=== PATIENT | male | born 1960 | race Caucasian/White ===

== ENCOUNTER 2020-02-04 15:39 | Emergency (ER) | payer MEDICAID ==
[2020-02-04] MEDS ORDERED: BUFFERED LIDOCAINE 10 ML SYRINGE SUBQ STA (16:49)
[2020-02-04] MEDS ORDERED: TETANUS/DIPHTHERIA/PERTUSSIS 0.5 ML SYRINGE IM ONE (16:49)
--- NOTE | 2020-02-04 17:14 | ED Physician Documentation ---
History of Present Illness - Stated complaint Stated Complaint: RT SHOULDER BITE - Chief complaint Chief Complaint: General - History obtained from History obtained from: Patient - History of Present Illness Timing: Prior to arrival, How many weeks ago (2) - Additonal information Additional information: 59-year-old male presents to the emergency department for evaluation of a right upper posterior arm abscess that he reports began as a spider bite nearly 2 weeks ago. His placed warm compress and antibiotic ointment to no avail. Is progressively more painful and now quite fluctuant. He denies fevers any history of diabetes. No nausea vomiting. Review of Systems Constitutional: reports: Reviewed and negative Ears: reports: Reviewed and negative Nose: reports: Reviewed and negative Throat: reports: Reviewed and negative Cardiac: reports: Reviewed and negative Respiratory: reports: Reviewed and negative GI: reports: Reviewed and negative Skin: reports: Lesions (right upper posterior arm) Musculoskeletal: reports: Reviewed and negative Neurologic: reports: Reviewed and negative PD PAST MEDICAL HISTORY - Past Medical History Past Medical History: No - Past Surgical History Past Surgical History: No - Present Medications Home Medications: Ambulatory Orders Medication Instructions Recorded Confirmed Sulfamethox/Trimeth 800/160 1 each PO BID #14 tablet 02/04/20 [Bactrim Ds 800/160] - Allergies Allergies/Adverse Reactions: Allergies Allergy/AdvReac Type Severity Reaction Status Date / Time No Known Drug Allergies Allergy Verified 02/04/20 15:57 - Social History Does the pt smoke?: Yes Smoking Status: Current every day smoker Does the pt drink ETOH?: No Does the pt have substance abuse?: No - Immunizations Immunizations are current?: Yes PD ED PE NORMAL - General General: Alert and oriented X 3, No acute distress - HEENT HEENT: PERRL, EOMI, Ears normal - Neck Neck: Supple, no meningeal sign, No adenopathy - Cardiac Cardiac: RRR, No murmur - Respiratory Respiratory: No respiratory distress - Abdomen Abdomen: Normal bowel sounds, Soft - Derm Derm: Normal color, Warm and dry, No rash, Other (4 cm area of erythema and induration with centralized fluctuance right upper posterior arm.) - Extremities Extremities: No deformity Results - Vitals Vitals: Vital Signs - 24 hr 02/04/20 02/04/20 15:53 16:43 Temperature 36.4 C L 36.3 C L Heart Rate 60 66 Respiratory 16 18 Rate Blood Pressure 154/89 H 165/89 H O2 Saturation 95 94 Oxygen O2 Source Room air Procedures - Abscess I&D (location) right arm Preparation: Betadine Incision: Incised with scalpel, Purulent drainage, Loculations broken, Irrigated, Packed Other: Pt tolerated well, Dressing applied, Antibiotic prescribed PD MEDICAL DECISION MAKING - ED course Complexity details: considered differential, d/w patient ED course: 59-year-old male presents to the emergency department with a right upper posterior arm abscess that began nearly 2 weeks ago. His tetanus was updated in the emergency department. I was able to incise and drain the abscess with moderate amount of purulent fluid drained. Packing was placed. Patient advised to have the packing removed in 24 to 48 hours. Given purulent appearance of drainage will prescribe Bactrim for suspected MRSA. Routine wound care and emergent return precautions discussed Departure - Departure Disposition: 01 Home, Self Care Clinical Impression: Abscess Condition: Stable Record reviewed to determine appropriate education?: Yes Instructions: ED Packing Removal Replacement, ED IandD Abscess Ch Prescriptions: Sulfamethox/Trimeth 800/160 [Bactrim Ds 800/160] 1 each PO BID #14 tablet Comments: Dell the packing in your wound can be removed in 24 hours. Please fill the prescription for the oral antibiotics and begin taking tomorrow as directed. It will likely take 2 or more weeks for this wound to completely heal. If at any point you have increased pain, increased redness fevers or worsening milky drainage please return to the emergency department. You may shower normally. Once the packing is removed it is okay to allow water to rinse through the wound. Place a simple bandage over the wound each day.
[2020-02-04] MEDS ORDERED: SULFAMETH/TRIMETH DS 800/160 MG TABLET PO STA (17:35)
[2020-02-04 17:42] VITALS: BP 161/95
== END 2020-02-04 17:44 | disposition home or self-care (01) ==
LOC: ED 15:39
DX: L02.413 Cutaneous abscess of right upper limb (principal); F17.200 Nicotine dependence, unspecified, uncomplicated
CPT/HCPCS: 10061; 90471; 90715; 99283; 99284; A9270

== ENCOUNTER 2022-11-30 13:14 | Emergency (ER) | payer MEDICAID ==
[2022-11-30 14:42] LABS: BASOPHILS % (AUTO) 0.6 %; EOSINOPHILS # (AUTO) 0.1 10^3/uL (0.0-0.7); EOSINOPHILS % (AUTO) 1.8 %; HCT - HEMATOCRIT 52.9 % (42.0-52.0); HGB - HEMOGLOBIN 16.4 g/dL (14.0-18.0); LYMPHOCYTES # (AUTO) 1.9 10^3/uL (1.5-3.5); LYMPHOCYTES % (AUTO) 28.5 %; MEAN CORPUSCULAR HEMOGLOBIN 30.1 pg (27.0-31.0); MEAN CORPUSCULAR VOLUME 97.2 fL (80.0-94.0); MEAN PLATELET VOLUME 9.4 fL (7.4-11.4); MONOCYTES # (AUTO) 0.7 10^3/uL (0.0-1.0); MONOCYTES % (AUTO) 11.1 %; NEUTROPHILS # (AUTO) 3.8 10^3/uL (1.5-6.6); NEUTROPHILS % (AUTO) 57.8 %; PLT - PLATELET COUNT 179 10^3/uL (130-450); RED BLOOD COUNT 5.44 10^6/uL (4.70-6.10); RED CELL DISTRIBUTION WIDTH 16.9 % (12.0-15.0); WHITE BLOOD COUNT 6.6 x10^3/uL (4.8-10.8)
[2022-11-30] MEDS ORDERED: iohexoL-300 100 ML VIAL ONE (14:47)
--- NOTE | 2022-11-30 14:50 | XRAY Report ---
PROCEDURE: Chest 1 View X-Ray INDICATIONS: dyspnea TECHNIQUE: One view of the chest was acquired. COMPARISON: None. FINDINGS: Surgical changes and devices: None. Lungs and pleura: No pleural effusions or pneumothorax. Prominent pulmonary vascularity. Mediastinum: Mediastinal contours appear normal. Heart size is mildly increased. Bones and chest wall: No suspicious bony lesions. Overlying soft tissues appear unremarkable. IMPRESSION: Mild cardiomegaly and prominent vascularity suggesting mild CHF. Reviewed by: Luiz Patel MD on 11/30/2022 2:48 PM PDT Approved by: Luiz Patel MD on 11/30/2022 2:48 PM PDT Station ID: [id number]
[2022-11-30 15:38] LABS: ALBUMIN 3.5 g/dL (3.2-5.5); ALBUMIN/GLOBULIN RATIO 0.8 (1.0-2.2); ALKALINE PHOSPHATASE 52 IU/L (42-121); ALT ALANINE AMINOTRANSFERASE 12 IU/L (10-60); AST ASPARTATE AMINOTRANSFERASE 13 IU/L (10-42); BILIRUBIN,TOTAL 0.8 mg/dL (0.2-1.0); BUN - BLOOD UREA NITROGEN 16 mg/dL (6-20); CALCIUM 8.8 mg/dL (8.5-10.3); CARBON DIOXIDE - CO2 35 mmol/L (21-32); CHLORIDE 95 mmol/L (101-111); CREATININE 1.1 mg/dL (0.6-1.2); ETOH - ETHANOL < 5.0 mg/dL; GFR - MDRD 68 (>89); GLUCOSE 95 mg/dL (70-100); LIPASE 37 U/L (22-51); POTASSIUM 4.4 mmol/L (3.5-5.0); SODIUM 136 mmol/L (135-145); TOTAL PROTEIN 8.1 g/dL (6.7-8.2)
[2022-11-30 15:44] VITALS: BP 160/94
[2022-11-30] MEDS ORDERED: iohexoL-300 100 ML VIAL IVP ONE (16:16)
--- NOTE | 2022-11-30 16:26 | CT Report ---
PROCEDURE: ABDOMEN/PELVIS W INDICATIONS: abd distension over 3 months CONTRAST: 100ml omni 300 TECHNIQUE: After the administration of intravenous contrast, 5 mm thick sections acquired from the diaphragms to the symphysis. 5 mm thick coronal and sagittal reformats were acquired. For radiation dose reducti on, the following was used: automated exposure control, adjustment of mA and/or kV according to mis ent size. COMPARISON: None FINDINGS: Image quality: Excellent. Lung bases and heart: Unremarkable. Liver: No solid mass. Enlarged, measuring a maximum craniocaudal diameter of 22 mm. Gallbladder and biliary tree: Cholelithiasis with mild focal wall thickening. No biliary dilation. Spleen: No splenomegaly. Pancreas: No pancreatic ductal dilation. Adrenals: No adrenal nodule. Kidneys and ureters: No hydronephrosis. No renal cystic lesion which requires follow up. No solid mas s. Bowel and peritoneum: No bowel distension. Trace ascites surrounding the liver. Diverticulosis withou t evidence of diverticulitis. Normal appendix. Lymph nodes: No central or retroperitoneal adenopathy. Vessels: No infrarenal aortic aneurysm. PELVIS Reproductive organs: Unremarkable. Bladder: No abnormal wall thickening, accounting for underdistension. Pelvic lymph nodes: No pelvic adenopathy by size criteria. Bones: No aggressive osseous abnormality. Opposing endplate sclerosis at L4-5. Degenerative disc dise ase of the thoracolumbar spine. Other: No significant ventral or inguinal hernia. IMPRESSION: Hepatomegaly, measuring a maximum chronic sagittal diameter of 22 mm. No distinct underlying mass. Traced volume ascites. This could be due to underlying liver disease. Cholelithiasis with focal wall thickening. Correlate with right upper quadrant pain to exclude acute cholecystitis. Reviewed by: Song Johnson on 11/30/2022 4:25 PM PDT Approved by: Song Johnson on 11/30/2022 4:25 PM PDT Station ID: [id number]
--- NOTE | 2022-11-30 16:57 | ED Physician Documentation ---
PD HPI ABD PAIN - Stated complaint Stated Complaint: DISTENTED ABD - Chief complaint Chief Complaint: Abd Pain - History obtained from History obtained from: Patient - History of Present Illness Timing - onset: How many months ago (several months of increasing abd size and distension, with feeling of tightness. No nausea nor vomiting. No change in appetite. Has noted chronic edema in both legs, worse the past couple o fmonths. Has had dyspnea with cough and wheezing. was shelter smoker, not current.) Timing - details: Gradual onset, Still present Quality: Cramping, Aching, Fullness/distended Location: All over / everywhere Radiation: No: Chest, Lower back Improved by: BM Associated symptoms: No: Fever, Nausea, Vomiting, Diarrhea, Constipation, Dysuria, Loss of appetite Similar symptoms before: Has not had sx before Review of Systems Constitutional: denies: Fever, Chills Nose: denies: Rhinorrhea / runny nose, Congestion Throat: denies: Sore throat Cardiac: reports: Pedal edema. denies: Chest pain / pressure, Palpitations, Calf pain Respiratory: reports: Dyspnea, Cough, Wheezing GI: reports: Abdominal Swelling. denies: Abdominal Pain, Nausea, Vomiting, Constipation, Diarrhea Skin: reports: Lesions (has redness and scaling o fskin on lower legs due to swelling/unswelling.) PD PAST MEDICAL HISTORY - Past Medical History Cardiovascular: Hypertension Respiratory: None (no Dx of lung disease but has wheezing often and prior long history of smoking. He feels likely some COPD. ) Neuro: None Endocrine/Autoimmune: None - Past Surgical History Past Surgical History: No - Present Medications Home Medications: Ambulatory Orders Medication Instructions Recorded Confirmed Sulfamethox/Trimeth 800/160 1 each PO BID #14 tablet 02/04/20 [Bactrim Ds 800/160] Albuterol Sulf [Ventolin Hfa 2 - 3 puffs INH QID #1 each 11/30/22 Inhaler] Furosemide [Lasix] 40 mg PO DAILY #30 tablet 11/30/22 Potassium Chloride 10 meq PO DAILY #30 tab 11/30/22 - Allergies Allergies/Adverse Reactions: Allergies Allergy/AdvReac Type Severity Reaction Status Date / Time No Known Drug Allergies Allergy Verified 11/30/22 13:38 - Living Situation Living Situation: reports: With spouse/s.o. Living Arrangement: reports: At home - Social History Does the pt smoke?: Yes Smoking Status: Current every day smoker Does the pt drink ETOH?: No Does the pt have substance abuse?: No - Immunizations Immunizations are current?: Yes PD ED PE NORMAL - Vitals Vital signs reviewed: Yes - General General: Alert and oriented X 3, No acute distress, Well developed/nourished - Neck Neck: Supple, no meningeal sign, No adenopathy - Cardiac Cardiac: RRR, No murmur - Respiratory Respiratory: No: Clear bilaterally (exp wheezing noted diffusely. No coarse sounds nor fine crackles. ) - Abdomen Abdomen: Normal bowel sounds, Soft, Non tender, No organomegaly, Other (generally distended and firm abdomen without dullness to percussion. Has normal tympani to percussion. Liver perhaps enlarged. Not tender. ) Results - Vitals Vitals: Oxygen O2 Source Nasal cannula - Labs Labs: Laboratory Tests 11/30/22 11/30/22 11/30/22 14:06 15:05 15:05 WBC 6.6 RBC 5.44 Hgb 16.4 Hct 52.9 H MCV 97.2 H MCH 30.1 MCHC 31.0 L RDW 16.9 H Plt Count 179 MPV 9.4 Neut # (Auto) 3.8 Lymph # (Auto) 1.9 [place] # (Auto) 0.7 Eos # (Auto) 0.1 Baso # (Auto) 0.0 Absolute Nucleated RBC 0.00 Nucleated RBC % 0.0 Sodium 136 Potassium 4.4 Chloride 95 L Carbon Dioxide 35 H Anion Gap 6.0 BUN 16 Creatinine 1.1 Estimated GFR (MDRD) 68 L Glucose 95 Calcium 8.8 Magnesium 2.0 Total Bilirubin 0.8 AST 13 ALT 12 Alkaline Phosphatase 52 Total Protein 8.1 Albumin 3.5 Globulin 4.6 H Albumin/Globulin Ratio 0.8 L Lipase 37 TSH 14.34 H Ethyl Alcohol < 5.0 - Rads (name of study) abd/pelvic CT Relevant Findings:: Prelim report reviewed (large liver, trace ascites, cholelithiasts without cholecystitis. ), EMP independent interpretation of test, See rad report PD Medical Decision Making - ED course Complexity details: considered differential (I was expecting some large ascites but CT did not show acute explanation. Presume just obese. He does have leg edema and some abd distension could be fluid retention. Can start diuretic. Also with likely [employer].), d/w patient Departure - Departure Disposition: 01 Home, Self Care Clinical Impression: Abdominal distension, Fluid retention in legs, COPD (chronic obstructive pulmonary disease) Condition: Stable Record reviewed to determine appropriate education?: Yes Instructions: ED Edema Legs Bilateral Follow-Up: Chela Vera MD [Primary Care Provider] - [facility] [Provider Group] Prescriptions: Furosemide [Lasix] 40 mg PO DAILY #30 tablet Potassium Chloride 10 meq PO DAILY #30 tab Albuterol Sulf [Ventolin Hfa Inhaler] 2 - 3 puffs INH QID #1 each Comments: Your blood tests and CT scan actually are fairly good looking. I think your swelling of the abdomen and legs is related to some fluid retention. This may tie into some enlargement of the liver and the effect of the blood flow back through it. At this point I would suggest just adding furosemide diuretic water pill along with the potassium supplement daily. Follow-up with the upcoming appointments with Dr. Vera in the [facility] as planned. For your breathing, also use albuterol inhaler 2 to 3 puffs 4 times daily. Low-salt diet. I sent your prescriptions to [facility] in [place]. Discharge Date/Time: 11/30/22 17:25
== END 2022-11-30 17:25 | disposition home or self-care (01) ==
LOC: ED 13:14 → SUPCPDRO 13:14 → ED 17:25
DX: R14.0 Abdominal distension (gaseous) (principal); R60.0 Localized edema; J44.9 Chronic obstructive pulmonary disease, unspecified; Z87.891 Personal history of nicotine dependence
CPT/HCPCS: 36415; 71045; 74177; 80053; 80320; 83690; 83735; 84443; 85025; 93005; 99284; 99285; Q9967

== ENCOUNTER 2022-12-12 08:00 | Outpatient (CLI) | payer MEDICAID | END 2022-12-12 23:59 | disposition home or self-care (01) | LOC: LAB.S 08:00 | PROVIDERS: ATTEND Internal Medicine | DX: L08.9 Local infection of the skin and subcutaneous tissue, unspecified (principal) | CPT/HCPCS: 87070; 87075; 87186 ==

== ENCOUNTER 2023-02-04 08:16 | Outpatient (CLI) | payer MEDICAID ==
[2023-02-04 14:45] LABS: BASOPHILS # (AUTO) 0.1 10^3/uL (0.0-0.1); BASOPHILS % (AUTO) 0.8 %; EOSINOPHILS # (AUTO) 0.1 10^3/uL (0.0-0.7); EOSINOPHILS % (AUTO) 1.5 %; HCT - HEMATOCRIT 51.6 % (42.0-52.0); HGB - HEMOGLOBIN 16.1 g/dL (14.0-18.0); LYMPHOCYTES # (AUTO) 2.4 10^3/uL (1.5-3.5); MEAN CORPUSCULAR HEMOGLOBIN 30.6 pg (27.0-31.0); MEAN CORPUSCULAR HGB CONC 31.2 g/dL (32.0-36.0); MEAN CORPUSCULAR VOLUME 97.9 fL (80.0-94.0); MEAN PLATELET VOLUME 9.8 fL (7.4-11.4); MONOCYTES # (AUTO) 0.7 10^3/uL (0.0-1.0); NEUTROPHILS # (AUTO) 2.7 10^3/uL (1.5-6.6); NEUTROPHILS % (AUTO) 45.4 %; PLT - PLATELET COUNT 157 10^3/uL (130-450); RED BLOOD COUNT 5.27 10^6/uL (4.70-6.10); WHITE BLOOD COUNT 5.9 x10^3/uL (4.8-10.8)
[2023-02-04 15:40] LABS: ALBUMIN 3.7 g/dL (3.2-5.5); ALBUMIN/GLOBULIN RATIO 0.9 (1.0-2.2); ALKALINE PHOSPHATASE 53 IU/L (42-121); ALT ALANINE AMINOTRANSFERASE 6 IU/L (10-60); AST ASPARTATE AMINOTRANSFERASE 10 IU/L (10-42); BILIRUBIN,TOTAL 0.7 mg/dL (0.2-1.0); BUN - BLOOD UREA NITROGEN 17 mg/dL (6-20); CALCIUM 9.3 mg/dL (8.5-10.3); CARBON DIOXIDE - CO2 34 mmol/L (21-32); CHLORIDE 100 mmol/L (101-111); CHOL/HDL RATIO 5.6 (<5.0); CHOLESTEROL 162 mg/dL; GFR - MDRD 76 (>89); GLUCOSE 92 mg/dL (74-104); HDL CHOLESTEROL 29 mg/dL; LDL CHOLESTEROL,CALCULATED 96 mg/dL; LDL/HDL RATIO 3.3 (<3.6); POTASSIUM 4.2 mmol/L (3.5-4.5); SODIUM 135 mmol/L (135-145); TOTAL PROTEIN 7.9 g/dL (6.4-8.9); TRIGLYCERIDES 185 mg/dL (48-352); URIC ACID 6.7 mg/dL (4.4-7.6); VLDL CHOLESTEROL 37 mg/dL
== END 2023-02-04 08:17 | disposition home or self-care (01) ==
LOC: LAB.S 08:16
PROVIDERS: ATTEND Internal Medicine
DX: I10 Essential (primary) hypertension (principal); R22.1 Localized swelling, mass and lump, neck; Z12.5 Encounter for screening for malignant neoplasm of prostate; M25.50 Pain in unspecified joint
CPT/HCPCS: 36415; 80053; 80061; 83721; 83970; 84153; 84550; 85025

== ENCOUNTER 2023-09-03 15:42 | Inpatient (IN) | payer BC ==
--- NOTE | 2023-09-03 16:30 | ED Physician Documentation ---
History of Present Illness - Stated complaint Stated Complaint: LOW OXYGEN - Chief complaint Chief Complaint: Resp - Additonal information Additional information: 62-year-old gentleman with history of probable COPD and history of fluid overl oad for unclear reasons from the chart. He says he does not have any heart or kidney problems. States that about a month ago skipped several doses of his diuretic and "blew up," he presents because he is still quite edematous with significantly painful legs despite doubling his dose of diuretic since then. States he is not particular short of breath and has no chest pain. His lower abdomen does hurt. PD PAST MEDICAL HISTORY - Past Medical History Past Medical History: Yes Cardiovascular: Hypertension Respiratory: None Neuro: None Endocrine/Autoimmune: None GI: None : None Psych: None Musculoskeletal: Gout, Fatigue, Other Derm: Eczema, Other - Past Surgical History Past Surgical History: No - Present Medications Home Medications: Ambulatory Orders Medication Instructions Recorded Confirmed Furosemide [Lasix] 40 mg PO DAILY #30 tablet 11/30/22 09/03/23 Potassium Chloride 10 meq PO DAILY #30 tab 11/30/22 09/03/23 Albuterol Sulf [Ventolin Hfa 2 - 3 puffs INH QID PRN 09/03/23 09/03/23 Inhaler] - Allergies Allergies/Adverse Reactions: Allergies Allergy/AdvReac Type Severity Reaction Status Date / Time No Known Drug Allergies Allergy Verified 09/03/23 15:58 - Social History Does the pt smoke?: Yes Smoking Status: Current every day smoker Does the pt drink ETOH?: No ETOH Use: Liquor Does the pt have substance abuse?: No - Immunizations Immunizations are current?: No Immunizations: Other immun not current PD ED PE NORMAL - Vitals Vital signs reviewed: Yes (Hypoxic) - General General: Alert and oriented X 3, No acute distress - HEENT HEENT: PERRL, EOMI - Neck Neck: Supple, no meningeal sign - Cardiac Cardiac: RRR, No murmur - Respiratory Respiratory: No respiratory distress, Other (Diminished throughout) - Abdomen Abdomen: Other (Distended abdomen with redness to the lower abdominal wall bilaterally. Modest tenderness lower abdomen. No ascites on bedside ultrasound.) - Back Back: No CVA TTP, No spinal TTP - Derm Derm: Normal color, Warm and dry - Extremities Extremities: Other (4+ edema of both legs with severe venous stasis changes and innumerable sores.) - Neuro Neuro: Alert and oriented X 3 Results - Vitals Vitals: Vital Signs - 24 hr 09/03/23 09/03/23 09/03/23 15:58 16:22 16:24 Temperature 36 C L Heart Rate 65 59 L Respiratory 22 32 H 24 Rate Blood Pressure 119/64 128/72 O2 Saturation 87 L 80 L 94 If not protocol 4 : Oxygen Flow, liters/minute 09/03/23 09/03/23 17:09 17:23 Temperature Heart Rate 59 L 89 Respiratory 16 15 Rate Blood Pressure 121/72 O2 Saturation 96 If not protocol 2 2 : Oxygen Flow, liters/minute Oxygen O2 Source Nasal cannula Oxygen Flow Rate 2 - EKG (time done) 1655 EKG releavant findings:: EKG personally interpreted by author of this note. Relevant findings are: Rate: Rate (enter#) (57) Rhythm: NSR [place]: Normal Intervals: Prolonged [place] QRS: Normal Ischemia: Non specific changes - Labs Labs: Laboratory Tests 09/03/23 09/03/23 09/03/23 16:32 16:32 16:32 WBC 6.0 RBC 4.95 Hgb 15.3 Hct 50.7 MCV 102.4 H MCH 30.9 MCHC 30.2 L RDW 17.2 H Plt Count 194 MPV 8.7 Neut # (Auto) 3.7 Lymph # (Auto) 1.5 [place] # (Auto) 0.7 Eos # (Auto) 0.1 Baso # (Auto) 0.1 Absolute Nucleated RBC 0.00 Nucleated RBC % 0.0 PT 13.9 H INR 1.3 H Sodium 137 Potassium 3.8 Chloride 93 L Carbon Dioxide 41 H* Anion Gap 3.0 L BUN 26 H Creatinine 1.3 Estimated GFR (MDRD) 56 L Glucose 98 Calcium 9.7 Total Bilirubin 0.7 AST 10 ALT 6 L Alkaline Phosphatase 52 Troponin I High Sens B-Natriuretic Peptide Total Protein 8.1 Albumin 3.5 Globulin 4.6 H Albumin/Globulin Ratio 0.8 L Lipase 57 09/03/23 09/03/23 16:32 16:32 WBC RBC Hgb Hct MCV MCH MCHC RDW Plt Count MPV Neut # (Auto) Lymph # (Auto) [place] # (Auto) Eos # (Auto) Baso # (Auto) Absolute Nucleated RBC Nucleated RBC % PT INR Sodium Potassium Chloride Carbon Dioxide Anion Gap BUN Creatinine Estimated GFR (MDRD) Glucose Calcium Total Bilirubin AST ALT Alkaline Phosphatase Troponin I High Sens 28.0 H* B-Natriuretic Peptide 292 H Total Protein Albumin Globulin Albumin/Globulin Ratio Lipase - Rads (name of study) Single view chest x-ray suggestive of pulmonary edema Relevant Findings:: Final report received, EMP independent interpretation of test PD Medical Decision Making - ED course ED course: 62-year-old gentleman presents with anasarca of unclear etiology. I am not seeing any evidence of an echocardiogram or other workup for this in the past in her chart. He is not short of breath per se but is hypoxic and his chest x-ray shows pulmonary edema. His blood pressure is good and does not need nitrates. He was administered 80 mg of IV Lasix and I spoke with Dr. Murdock for admission at approximately 5:20 PM. Otherwise workup in the emergency department demonstrated a normal CBC, mild elevation in INR likely due to hepatic congestion, elevated BNP and mild elevation of troponin. The CO2 is elevated suggesting some chronic respiratory insufficiency and a venous blood gas was ordered and pending on admission. Departure - Departure Disposition: 66 [facility] DC/Xfer Clinical Impression: Pulmonary edema, Hypoxemia, Anasarca Condition: Serious Forms: PCP List
[2023-09-03 16:39] LABS: BASOPHILS # (AUTO) 0.1 10^3/uL (0.0-0.1); EOSINOPHILS # (AUTO) 0.1 10^3/uL (0.0-0.7); EOSINOPHILS % (AUTO) 1.5 %; HCT - HEMATOCRIT 50.7 % (42.0-52.0); HGB - HEMOGLOBIN 15.3 g/dL (14.0-18.0); LYMPHOCYTES # (AUTO) 1.5 10^3/uL (1.5-3.5); LYMPHOCYTES % (AUTO) 24.7 %; MEAN CORPUSCULAR HEMOGLOBIN 30.9 pg (27.0-31.0); MEAN CORPUSCULAR HGB CONC 30.2 g/dL (32.0-36.0); MEAN CORPUSCULAR VOLUME 102.4 fL (80.0-94.0); MEAN PLATELET VOLUME 8.7 fL (7.4-11.4); MONOCYTES # (AUTO) 0.7 10^3/uL (0.0-1.0); MONOCYTES % (AUTO) 11.4 %; NEUTROPHILS # (AUTO) 3.7 10^3/uL (1.5-6.6); NEUTROPHILS % (AUTO) 61.1 %; PLT - PLATELET COUNT 194 10^3/uL (130-450); RED BLOOD COUNT 4.95 10^6/uL (4.70-6.10); RED CELL DISTRIBUTION WIDTH 17.2 % (12.0-15.0)
[2023-09-03 16:49] LABS: INR 1.3 (0.8-1.2); PT - PROTHROMBIN TIME 13.9 secs (9.9-12.6)
[2023-09-03] MEDS: FUROSEMIDE 100 MG/10 ML VIAL IVP STA (16:53)
--- NOTE | 2023-09-03 17:03 | XRAY Report ---
PROCEDURE: Chest 1V INDICATIONS: low ox TECHNIQUE: One view of the chest was acquired. COMPARISON: Chest radiograph on November 30, 2022. FINDINGS: Surgical changes and devices: None. Lungs and pleura: No pleural effusions or pneumothorax. Diffuse interstitial prominence with superim posed bibasilar patchy consolidation. Mediastinum: Mediastinal contours appear normal. Heart size is normal. Bones and chest wall: No suspicious bony lesions. Overlying soft tissues appear unremarkable. IMPRESSION: Diffuse interstitial prominence suggestive of pulmonary edema. Bibasilar patchy consolidation may ref lect superimposed atelectasis, aspiration and/or pneumonia. Reviewed by: Giselle Gordon MD on 09/03/2023 5:01 PM PDT Approved by: Giselle Gordon MD on 09/03/2023 5:01 PM PDT Station ID: [id number]
[2023-09-03 17:04] LABS: ALBUMIN 3.5 g/dL (3.2-5.5); ALBUMIN/GLOBULIN RATIO 0.8 (1.0-2.2); BILIRUBIN,TOTAL 0.7 mg/dL (0.2-1.0); CALCIUM 9.7 mg/dL (8.5-10.3); CREATININE 1.3 mg/dL (0.6-1.3); POTASSIUM 3.8 mmol/L (3.5-4.5); TOTAL PROTEIN 8.1 g/dL (6.4-8.9)
[2023-09-03] MEDS: IPRATROPIUM/ALBUTEROL 3 ML NEB INH STA (17:17)
[2023-09-03 17:45] LABS: VBG BASE EXCESS 9.5 mmol/L (-2 - +2); VBG HCO3 39.8 mmol/L (23-28); VBG PCO2 78.8 mmHg (41-51); VBG PH 7.321 (7.31-7.41); VBG PO2 27.5 mmHg (25-47); VBG TOTAL CO2 42.2 mmol/L (24-29)
[2023-09-03] MEDS ORDERED: SODIUM CHLORIDE FLUSH 0.9% 10 ML SYRINGE IVP PRN (17:47)
[2023-09-03] MEDS ORDERED: ONDANSETRON 4 MG/2 ML VIAL IVP PRN (17:47)
[2023-09-03] MEDS ORDERED: ONDANSETRON ODT 4 MG TABLET TL PRN (17:47)
--- NOTE | 2023-09-03 18:05 | HISTORY & PHYSICAL EXAMINATION ---
Chief Complaint - Chief Complaint Chief Complaint: Shortness of breath History of Present Illness - Admitted From Admitted From:: ED - History Obtained From Records Reviewed: Yes History obtained from: Patient, EMR Exam Limitations: None - History of Present Illness HPI Comment/Other: Patient is a 62-year-old male with a past medical history of morbid obesity, tobacco dependence with probable COPD, previous alcohol use disorder, hepatic steatosis, probable JOSE who presented to the ED due to complaints of shortness of breath and edema. Patient reports that he stopped taking his Lasix approximately a month ago and has become significantly edematous. He is also been experiencing erythema which starts at his lower extremity and extends into his abdomen. Patient is hypoxic requiring 2 L of oxygen via nasal cannula. He denies any dyspnea or chest pain. His primary complaint is lower extremity pain. Patient states he has been smoking since his youth and continues to smoke. He denies any prior history of any cardiovascular intervention or diagnosis. He states he has never had a formal sleep study but does have apneic episodes when he sleeps. He is not on any CPAP device. He appears to have significant stasis dermatitis to his lower extremities. Recent KAT was normal. In the ED chest x-ray was performed reveals diffuse interstitial prominence which is for pulmonary edema. There is also bibasilar patchy consolidation which may reflect superimposed atelectasis, aspiration, and or pneumonia. Patient resides with his and daughter. He does not use any assistive devices to ambulate. History - Past Medical History Cardiovascular: reports: Hypertension Respiratory: reports: None Neuro: reports: None Endocrine/Autoimmune: reports: None GI: reports: None : reports: None Psych: reports: None Musculoskeletal: reports: Gout, Fatigue, Other Derm: reports: Eczema, Other MRSA Hx?: No - Family & Social History Living Situation: With spouse/s.o. Meds/Allgy - Home Medications Home Medications: Ambulatory Orders Medication Instructions Recorded Confirmed Furosemide [Lasix] 40 mg PO DAILY #30 tablet 11/30/22 09/03/23 Potassium Chloride 10 meq PO DAILY #30 tab 11/30/22 09/03/23 Albuterol Sulf [Ventolin Hfa 2 - 3 puffs INH QID PRN 09/03/23 09/03/23 Inhaler] - Allergies Allergies/Adverse Reactions: Allergies Allergy/AdvReac Type Severity Reaction Status Date / Time No Known Drug Allergies Allergy Verified 09/03/23 15:58 Review of Systems - Constitutional Constitutional: denies: Fatigue, Fever, Chills, Malaise, Weakness - Cardiovascular Cariovascular: reports: Edema. denies: Irregular heart rate, Palpitations, Chest pain - Respiratory Respiratory: denies: Cough, Sputum production, Wheezing, Snoring - Gastrointestinal Gastrointestinal: denies: Abdominal pain, Abdominal distention, Constipation - All Other Systems All Other Systems: reports: Reviewed and negative Exam - Vital Signs Reviewed Vital Signs: Yes Vital Signs: Vital Signs x48h Temp Pulse Resp BP Pulse Ox O2 Flow Rate 09/03/23 17:30 62 14 121/82 H 94 2 09/03/23 17:23 89 15 2 09/03/23 17:09 59 L 16 121/72 96 2 09/03/23 16:24 24 94 4 09/03/23 16:22 59 L 32 H 128/72 80 L 09/03/23 15:58 36 C L 65 22 119/64 87 L - Physical Exam General Appearance: positive: No acute distress, Alert Respiratory: positive: Chest non-tender, No respiratory distress, Breath sounds nml Cardiovascular: positive: Regular rate & rhythm, No murmur, No gallop Skin: positive: Other ( Bilateral lower extremity swelling and stasis dermatitis. Erythema present starting at his feet up to his lower abdomen.) Conclusion/Plan - Problem List (1) Anasarca Conclusion/Plan: -- Etiology is likely combination of his liver disease and possibly underlying congestive heart failure. --He does have a recent ultrasound which reveals evidence of chronic liver disease. There is also evidence of ascites. Given his history of drinking he likely has underlying liver disease. --TTE is currently pending. -- Will start on IV Lasix 40 mg twice daily. (2) Pulmonary edema Conclusion/Plan: -- As mentioned above, likely etiology is combination of CHF and chronic liver disease. A TTE is pending to confirm suspicions. -- Continue supplemental oxygen and wean as tolerated. Qualifiers: (3) Hepatomegaly Conclusion/Plan: -- As seen on recent ultrasound. Will not repeat imaging. (4) Local infection of the skin and subcutaneous tissue, unspecified Conclusion/Plan: -- Appears to have cellulitis starting in his bilateral lower extremities extending to his lower abdomen. Will start him on IV ceftriaxone. --Blood cultures have been ordered. (5) Nicotine dependence Conclusion/Plan: -- Nicotine patch ordered. Qualifiers: Nicotine product type: cigarettes Substance use status: uncomplicated Qualified Code(s): F17.210 - Nicotine dependence, cigarettes, uncomplicated (6) TSH elevation Conclusion/Plan: -- Repeat TSH in a.m. He does not have any levothyroxine on his home med ication list. (7) Venous insufficiency (chronic) (peripheral) Conclusion/Plan: -- Would benefit from outpatient wound care referral. (8) Troponin level elevated Conclusion/Plan: -- Will repeat troponin. He is not having any chest pain. Likely demand ischemia from his hypoxia and pulmonary vascular congestion. (9) Hypoxemia Conclusion/Plan: -- Etiology is likely his pulmonary vascular congestion. There also is a concern for pneumonia. Continue IV ceftriaxone. -- Blood cultures have been ordered. --Likely has underlying COPD. Scheduled DuoNeb ordered. (10) JOSE (obstructive sleep apnea) Conclusion/Plan: -- Has never had a prior sleep study. Does not use any CPAP device at home. Given his hypercarbia, he likely has underlying COPD/JOSE. Would benefit from an outpatient sleep study - Lab Results Fish Bones: 09/03/23 16:32 09/03/23 16:32 - Diagnostic Imaging Results Diagnostic Imaging Results: positive: Final report reviewed Core Measures - Anticipated LOS I expect patient to be DC'd or transferred within 96 hours.: Yes - DVT/VTE - Prophylaxis VTE/DVT Device ordered at admit?: Yes
[2023-09-03] MEDS: NICOTINE 21 MG PATCH TOP ONE (18:37)
[2023-09-03] MEDS: HYDROcod/ACETAM 5/325 MG TABLET PO PRN (18:38)
[2023-09-03] MEDS: cefTRIAXone 2 GM in SODIUM CHLORIDE 0.9% MINIBAG 100 ML IV ONE (18:45)
[2023-09-03] MEDS: IPRATROPIUM/ALBUTEROL 3 ML NEB INH SCH (23:56)
[2023-09-04] MEDS: SODIUM CHLORIDE FLUSH 0.9% 10 ML SYRINGE IVP SCH (01:36)
[2023-09-04 05:44] LABS: BASOPHILS % (AUTO) 0.6 %; EOSINOPHILS # (AUTO) 0.1 10^3/uL (0.0-0.7); EOSINOPHILS % (AUTO) 1.1 %; HCT - HEMATOCRIT 51.5 % (42.0-52.0); HGB - HEMOGLOBIN 15.3 g/dL (14.0-18.0); LYMPHOCYTES # (AUTO) 1.3 10^3/uL (1.5-3.5); MEAN CORPUSCULAR HEMOGLOBIN 30.9 pg (27.0-31.0); MEAN CORPUSCULAR HGB CONC 29.7 g/dL (32.0-36.0); MONOCYTES # (AUTO) 0.9 10^3/uL (0.0-1.0); NEUTROPHILS # (AUTO) 4.2 10^3/uL (1.5-6.6); PLT - PLATELET COUNT 197 10^3/uL (130-450); RED BLOOD COUNT 4.95 10^6/uL (4.70-6.10); RED CELL DISTRIBUTION WIDTH 17.2 % (12.0-15.0); WHITE BLOOD COUNT 6.6 x10^3/uL (4.8-10.8)
[2023-09-04 05:58] LABS: MAGNESIUM 2.1 mg/dL (1.7-2.3)
[2023-09-04 06:00] LABS: CALCIUM 9.6 mg/dL (8.5-10.3); CREATININE 1.2 mg/dL (0.6-1.3)
[2023-09-04] MEDS: FUROSEMIDE 40 MG/4 ML VIAL IVP SCH (08:20)
[2023-09-04] MEDS: ENOXAPARIN 40 MG/0.4 ML SYRINGE SUBQ SCH (08:20)
--- NOTE | 2023-09-04 09:17 | PROVIDER PROGRESS NOTE ---
Assessment/Plan - Problem List (1) Cellulitis Qualifiers: Site of cellulitis of extremity: lower extremity Assessment/Plan: --Bilateral lower extremity cellulitis extending into abdomen. --COntinue IV ceftriaxone. --Blood cultures pending. (2) Anasarca Assessment/Plan: (1) Anasarca Conclusion/Plan: -- Etiology is likely combination of his liver disease and possibly underlying congestive heart failure. --He does have a recent ultrasound which reveals evidence of chronic liver disease. There is also evidence of ascites. Given his history of drinking he likely has underlying liver disease. --TTE is currently pending. -- Will start on IV Lasix 40 mg twice daily. (2) Pulmonary edema Conclusion/Plan: -- As mentioned above, likely etiology is combination of CHF and chronic liver disease. A TTE is pending to confirm suspicions. -- Continue supplemental oxygen and wean as tolerated. Qualifiers: (3) Hepatomegaly Conclusion/Plan: -- As seen on recent ultrasound. Will not repeat imaging. (4) Local infection of the skin and subcutaneous tissue, unspecified Conclusion/Plan: -- Appears to have cellulitis starting in his bilateral lower extremities extending to his lower abdomen. Will start him on IV ceftriaxone. --Blood cultures have been ordered. (5) Nicotine dependence Conclusion/Plan: -- Nicotine patch ordered. Qualifiers: Nicotine product type: cigarettes Substance use status: uncomplicated Qualified Code(s): F17.210 - Nicotine dependence, cigarettes, uncomplicated (6) TSH elevation Conclusion/Plan: -- TSH elevated. Started on levothyroxine 88 mcg. (7) Venous insufficiency (chronic) (peripheral) Conclusion/Plan: -- Would benefit from outpatient wound care referral. (8) Troponin level elevated Conclusion/Plan: -- Demand ischemia. TTE is pending. (9) Hypoxemia Conclusion/Plan: -- Etiology is likely his pulmonary vascular congestion. There also is a concern for pneumonia. Continue IV ceftriaxone. -- Blood cultures have been ordered. --Likely has underlying COPD. Scheduled DuoNeb ordered. (10) JOSE (obstructive sleep apnea) Conclusion/Plan: -- Has never had a prior sleep study. Does not use any CPAP device at home. Given his hypercarbia, he likely has underlying COPD/JOSE. Would benefit from an outpatient sleep study Dispo: Continue current cares. He feels improved. Challenge will be to convince him to remain inpatient to continue treatment. He is quite anxious to discharge. (3) Pulmonary edema Qualifiers: (6) Nicotine dependence Qualifiers: Nicotine product type: cigarettes Substance use status: uncomplicated Qualified Code(s): F17.210 - Nicotine dependence, cigarettes, uncomplicated - Current Meds Current Meds: Current Medications Generic Name Dose Route Start Last Admin Trade Name Freq PRN Reason Stop Dose Admin Hydrocodone Bitart/Acetaminophen 1 tab 09/03/23 17:47 09/04/23 01:36 Hydrocod/Acetam 5/325 Mg Tablet PO 1 tab Q4HR PRN Administration Pain 5 to 7 Albuterol/Ipratropium 3 ml 09/03/23 21:00 09/04/23 08:28 Ipratropium/Albuterol 3 Ml Neb INH 3 ml Q4HR SMITH Administration Enoxaparin Sodium 40 mg 09/04/23 09:00 09/04/23 08:20 Enoxaparin 40 Mg/0.4 Ml Syringe SUBQ 40 mg DAILY SMITH Administration Furosemide 40 mg 09/04/23 09:00 09/04/23 08:20 Furosemide 40 Mg/4 Ml Vial IVP 40 mg BID SMITH Administration Sodium Chloride 10 ml 09/04/23 01:00 09/04/23 08:21 Sodium Chloride Flush 0.9% 10 Ml Syringe IVP 10 ml 0100,0900,1700 SMITH Administration - Lab Result Fish Bone Diagrams: 09/04/23 05:22 09/04/23 05:22 - Additional Planning My Orders: My Active Orders 09/03/23 17:47 Activity Orders [RC] Q2HR IO [RC] IOSHIFT Incentive Spirometry - RT [RC] TID Initiate Bowel Care Protocol [RC] .protocol Initiate Line Care Protocol [RC] QSHIFT Initiate Personal Care Protoco [RC] .protocol Oxygen Therapy [RC] .PRN Telemetry (24 Hour) [RC] Q4HR Vital Signs [RC] Q4HR Acetaminophen [Tylenol] 650 mg PO Q4HR PRN HYDROcod/ACETAM 5/325 [[place] 5/325] 1 tab PO Q4HR PRN Ondansetron Inj [Zofran Inj] 4 mg IVP Q6HR PRN Ondansetron Odt [Zofran Odt] 4 mg TL Q6HR PRN Sodium Chloride Flush 0.9% [Normal Saline Flush 0.9%] 10 ml IVP PRN PRN Code Status [OTHERS] Routine Condition of Patient [OTHERS] Routine DVT Prophylaxis [OTHERS] Routine 09/03/23 17:48 Daily Weight [RC] 0600 Evaluate and Treat OT [OT] Routine Evaluate and Treat PT [PT] Routine 09/03/23 17:50 Echo Transthoracic Complete [ECHO] Stat 09/03/23 18:45 CULTURE, BLOOD #1 [RM] Routine 09/03/23 18:52 CULTURE, BLOOD #2 [RM] Routine 09/03/23 21:00 Ipratropium/Albuterol [Duoneb] 3 ml INH Q4HR 09/04/23 00:02 RT [Nebulizer/MDI Tx.] [RC] .Q4H 09/04/23 01:00 Sodium Chloride Flush 0.9% [Normal Saline Flush 0.9%] 10 ml IVP 0100,0900,1700 09/04/23 Breakfast Cardiac Diet [DIET] 09/04/23 09:00 Enoxaparin [Lovenox] 40 mg SUBQ DAILY FUROSEMIDE INJ 40mg VIAL [LASIX INJ 40 mg VIAL] 40 mg IVP BID 09/05/23 05:00 BMP - BASIC METABOLIC PANEL [CHEM] DAILYLAB CBC [CBC - COMP BLD CT W/AUTO DIFF] [HEME] DAILYLAB MAGNESIUM [CHEM] DAILYLAB 09/05/23 07:00 Levothyroxine [Synthroid] 88 mcg PO QDAC 09/05/23 09:00 Folic Acid 1 mg PO DAILY 09/06/23 05:00 BMP - BASIC METABOLIC PANEL [CHEM] DAILYLAB CBC [CBC - COMP BLD CT W/AUTO DIFF] [HEME] DAILYLAB MAGNESIUM [CHEM] DAILYLAB 09/07/23 05:00 BMP - BASIC METABOLIC PANEL [CHEM] DAILYLAB CBC [CBC - COMP BLD CT W/AUTO DIFF] [HEME] DAILYLAB MAGNESIUM [CHEM] DAILYLAB 09/08/23 05:00 BMP - BASIC METABOLIC PANEL [CHEM] DAILYLAB CBC [CBC - COMP BLD CT W/AUTO DIFF] [HEME] DAILYLAB MAGNESIUM [CHEM] DAILYLAB Subjective - Subjective Patient Reports: Feeling Better, No Complaints Objective Vital Signs: Vital Signs - 24 hr 09/03/23 09/03/23 09/03/23 15:58 16:22 16:24 Temperature 36 C L Heart Rate 65 59 L Heart Rate [ Brachial] Respiratory 22 32 H 24 Rate Blood Pressure 119/64 128/72 Blood Pressure [Left Brachial artery] O2 Saturation 87 L 80 L 94 If not protocol 4 : Oxygen Flow, liters/minute 09/03/23 09/03/23 09/03/23 17:09 17:23 17:30 Temperature Heart Rate 59 L 89 62 Heart Rate [ Brachial] Respiratory 16 15 14 Rate Blood Pressure 121/72 121/82 H Blood Pressure [Left Brachial artery] O2 Saturation 96 94 If not protocol 2 2 2 : Oxygen Flow, liters/minute 09/03/23 09/03/23 09/03/23 18:24 18:32 19:10 Temperature 36.4 C L Heart Rate Heart Rate [ 61 Brachial] Respiratory 16 Rate Blood Pressure Blood Pressure 131/69 H [Left Brachial artery] O2 Saturation 92 If not protocol 2 0 2 : Oxygen Flow, liters/minute 09/03/23 09/04/23 09/04/23 20:42 00:00 00:01 Temperature 36.3 C L 37.0 C Heart Rate 65 Heart Rate [ 68 64 Brachial] Respiratory 16 16 20 Rate Blood Pressure Blood Pressure 118/70 122/69 [Left Brachial artery] O2 Saturation 93 91 L If not protocol 2 2 : Oxygen Flow, liters/minute 09/04/23 09/04/23 09/04/23 05:00 05:55 07:38 Temperature 36.5 C 36.4 C L Heart Rate 52 L Heart Rate [ 54 L 58 L Brachial] Respiratory 21 18 16 Rate Blood Pressure Blood Pressure 113/64 113/68 [Left Brachial artery] O2 Saturation 97 95 If not protocol 2 2 2 : Oxygen Flow, liters/minute 09/04/23 08:29 Temperature Heart Rate 89 Heart Rate [ Brachial] Respiratory 17 Rate Blood Pressure Blood Pressure [Left Brachial artery] O2 Saturation If not protocol 2 : Oxygen Flow, liters/minute Oxygen O2 Source Nasal cannula Oxygen Flow Rate 2 I&O (Last 24 Hrs): Intake and Output Totals x24h 09/02/23 09/03/23 09/04/23 23:59 23:59 23:59 Intake Total 100 1080 Output Total 1300 950 Balance -1200 130 Neuro: Alert, CN 2-12 Grossly Intact, Oriented Times 3 Cardiovascular: Regular rate, Normal S1, Normal S2, No murmurs Respiratory: Chest non-tender, No respiratory distress, Breath sounds nml Abdomen: Normal bowel sounds, Soft, No tenderness, No hepatospenomegaly, No masses - Results Results: Laboratory Results WBC 6.6 x10^3/uL (4.8-10.8) 09/04/23 05:22 RBC 4.95 10^6/uL (4.70-6.10) 09/04/23 05:22 Hgb 15.3 g/dL (14.0-18.0) 09/04/23 05:22 Hct 51.5 % (42.0-52.0) 09/04/23 05:22 MCV 104.0 fL (80.0-94.0) H 09/04/23 05:22 MCH 30.9 pg (27.0-31.0) 09/04/23 05:22 MCHC 29.7 g/dL (32.0-36.0) L 09/04/23 05:22 RDW 17.2 % (12.0-15.0) H 09/04/23 05:22 Plt Count 197 10^3/uL (130-450) 09/04/23 05:22 MPV 9.0 fL (7.4-11.4) 09/04/23 05:22 Neut # (Auto) 4.2 10^3/uL (1.5-6.6) 09/04/23 05:22 Lymph # (Auto) 1.3 10^3/uL (1.5-3.5) L 09/04/23 05:22 [place] # (Auto) 0.9 10^3/uL (0.0-1.0) 09/04/23 05:22 Eos # (Auto) 0.1 10^3/uL (0.0-0.7) 09/04/23 05:22 Baso # (Auto) 0.0 10^3/uL (0.0-0.1) 09/04/23 05:22 Absolute Nucleated RBC 0.00 x10^3/uL 09/04/23 05:22 Nucleated RBC % 0.0 /100WBC 09/04/23 05:22 PT 13.9 secs (9.9-12.6) H 09/03/23 16:32 INR 1.3 (0.8-1.2) H 09/03/23 16:32 VBG pH 7.321 (7.31-7.41) 09/03/23 17:30 VBG pCO2 78.8 mmHg (41-51) H 09/03/23 17:30 VBG pO2 27.5 mmHg (25-47) 09/03/23 17:30 VBG HCO3 39.8 mmol/L (23-28) H 09/03/23 17:30 VBG Total CO2 42.2 mmol/L (24-29) H 09/03/23 17:30 VBG O2 Saturation 59.0 % (60-80) L 09/03/23 17:30 VBG Base Excess 9.5 mmol/L (-2 - +2) H 09/03/23 17:30 Sodium 137 mmol/L (135-145) 09/04/23 05:22 Potassium 4.0 mmol/L (3.5-4.5) 09/04/23 05:22 Chloride 94 mmol/L (101-111) L 09/04/23 05:22 Carbon Dioxide 41 mmol/L (21-32) H* 09/04/23 05:22 Anion Gap 2.0 (6-13) L 09/04/23 05:22 BUN 22 mg/dL (6-20) H 09/04/23 05:22 Creatinine 1.2 mg/dL (0.6-1.3) 09/04/23 05:22 Estimated GFR (MDRD) 62 (>89) L 09/04/23 05:22 Glucose 97 mg/dL (74-104) 09/04/23 05:22 Calcium 9.6 mg/dL (8.5-10.3) 09/04/23 05:22 Magnesium 2.1 mg/dL (1.7-2.3) 09/04/23 05:22 Total Bilirubin 0.7 mg/dL (0.2-1.0) 09/03/23 16:32 AST 10 IU/L (10-42) 09/03/23 16:32 ALT 6 IU/L (10-60) L 09/03/23 16:32 Alkaline Phosphatase 52 IU/L (42-121) 09/03/23 16:32 Troponin I High Sens 25.8 ng/L (2.3-19.7) H* 09/03/23 20:37 B-Natriuretic Peptide 292 pg/mL (5-100) H 09/03/23 16:32 Total Protein 8.1 g/dL (6.4-8.9) 09/03/23 16:32 Albumin 3.5 g/dL (3.2-5.5) 09/03/23 16:32 Globulin 4.6 g/dL (2.1-4.2) H 09/03/23 16:32 Albumin/Globulin Ratio 0.8 (1.0-2.2) L 09/03/23 16:32 Lipase 57 U/L (11-82) 09/03/23 16:32 Vitamin B12 267 pg/mL (180-914) 09/04/23 05:22 Folate 5.4 ng/mL (5.90 - >24.8) L 09/04/23 05:22 TSH 13.80 uIU/mL (0.34-5.60) H 09/04/23 05:22
--- NOTE | 2023-09-04 10:34 | PHARMACY PROGRESS NOTE ---
- Best Possible Medication History Admit Date and Time: 09/03/23 1853 Processed by: Pharmacy Medications reviewed in ED?: Yes Medication History completed: Yes Patient Interview: Completed Secondary Source(s): Insurance records As the person ultimately responsible for medication therapy, providers are able to order a medication from an existing home medication list in [facility] via the "Reconcile Routine" prior to Confirmation of that medication by legal support specialist. Such practice is discouraged except when the physician, in their clinical judgment, deems that a medical need exists for a medication without regard to previous use.
[2023-09-04] MEDS: cefTRIAXone 2 GM in SODIUM CHLORIDE 0.9% MINIBAG 100 ML IV SCH (11:04)
[2023-09-04] MEDS: NICOTINE 21 MG PATCH TOP SCH (11:10)
[2023-09-04] MEDS: ASCORBIC ACID 500 MG TABLET PO SCH (13:11)
[2023-09-04] MEDS: CYANOCOBALAMIN 500 MCG TABLET PO SCH (13:11)
[2023-09-04] MEDS: GENTAMICIN 0.3% OPHTH DROPS RIGHTEYE SCH (13:56)
[2023-09-04] MEDS: ACETAMINOPHEN 325 MG TABLET PO PRN (15:58)
[2023-09-05 05:39] LABS: BASOPHILS % (AUTO) 0.7 %; EOSINOPHILS # (AUTO) 0.1 10^3/uL (0.0-0.7); EOSINOPHILS % (AUTO) 1.8 %; HCT - HEMATOCRIT 48.9 % (42.0-52.0); HGB - HEMOGLOBIN 14.6 g/dL (14.0-18.0); LYMPHOCYTES # (AUTO) 1.4 10^3/uL (1.5-3.5); LYMPHOCYTES % (AUTO) 30.3 %; MEAN CORPUSCULAR HEMOGLOBIN 30.7 pg (27.0-31.0); MEAN CORPUSCULAR HGB CONC 29.9 g/dL (32.0-36.0); MEAN CORPUSCULAR VOLUME 102.7 fL (80.0-94.0); MONOCYTES # (AUTO) 0.6 10^3/uL (0.0-1.0); MONOCYTES % (AUTO) 13.6 %; NEUTROPHILS # (AUTO) 2.5 10^3/uL (1.5-6.6); NEUTROPHILS % (AUTO) 53.6 %; PLT - PLATELET COUNT 190 10^3/uL (130-450); RED BLOOD COUNT 4.76 10^6/uL (4.70-6.10); WHITE BLOOD COUNT 4.6 x10^3/uL (4.8-10.8)
[2023-09-05 05:48] LABS: MAGNESIUM 2.1 mg/dL (1.7-2.3)
[2023-09-05 05:51] LABS: CALCIUM 9.8 mg/dL (8.5-10.3); CREATININE 1.1 mg/dL (0.6-1.3); POTASSIUM 4.2 mmol/L (3.5-4.5)
[2023-09-05] MEDS: LEVOTHYROXINE 88 MCG TABLET PO SCH (06:40)
--- NOTE | 2023-09-05 08:55 | Discharge Plan ---
Discharge Plan Problem Reviewed?: Yes Disposition: Home, Self Care Condition: Serious Prescriptions: HYDROcod/ACETAM 5/325 [[place] 5/325] 1 tab PO Q4HR PRN #15 tab PRN Reason: Pain 5 to 7 Cefdinir 300 mg PO BID #14 cap Folic Acid 1 mg PO DAILY #30 tab Gentamicin 0.3% Ophth Drops [Garamycin] 2 drops RIGHTEYE BID 7 Days #1 each Furosemide [Lasix] 40 mg PO DAILY #30 tablet Potassium Chloride 10 meq PO DAILY #30 tab Albuterol Sulfate [Proair Respiclick] 90 mcg IH Q4H PRN #1 each PRN Reason: Shortness of breath, wheezing Levothyroxine [Synthroid] 88 mcg PO QDAC #30 tab Diet: Cardiac Activity Restrictions: No Restrictions Health Concerns: --Please follow up with your PCP. You need a referral for wound care, a sleep study, PFTs, and repeat TSH. --Please return to the ED if you begin having fevers/chills, worsening shortness of breath. No Smoking: If you smoke, Please STOP! Call for help.
[2023-09-05] MEDS ORDERED: FOLIC ACID 1 MG TABLET PO SCH (09:00)
--- NOTE | 2023-09-05 09:01 | DISCHARGE SUMMARY ---
Discharge Summary Admit Date: 09/03/23 Discharge Date: 09/05/23 Discharging Provider: Georges Murdock Primary Care Provider: Kassie Lewis Code Status: Attempt Resuscitation Condition at Discharge: Fair Discharge Disposition: 01 Home, Self Care - HPI History of Present Illness: Patient is a 62-year-old male with a past medical history of morbid obesity, tob acco dependence with probable COPD, previous alcohol use disorder, hepatic steatosis, probable JOSE who presented to the ED due to complaints of shortness of breath and edema. Patient reports that he stopped taking his Lasix approximately a month ago and has become significantly edematous. He is also been experiencing erythema which starts at his lower extremity and extends into his abdomen. Patient is hypoxic requiring 2 L of oxygen via nasal cannula. He denies any dyspnea or chest pain. His primary complaint is lower extremity pain. Patient states he has been smoking since his youth and continues to smoke. He denies any prior history of any cardiovascular intervention or diagnosis. He states he has never had a formal sleep study but does have apneic episodes when he sleeps. He is not on any CPAP device. He appears to have significant stasis dermatitis to his lower extremities. Recent KAT was normal. In the ED chest x-ray was performed reveals diffuse interstitial prominence which is for pulmonary edema. There is also bibasilar patchy consolidation which may reflect superimposed atelectasis, aspiration, and or pneumonia. Patient resides with his and daughter. He does not use any assistive devices to ambulate. - HOSPITAL COURSE Hospital Course: Patient is a 62-year-old male who presented to the ED due to complaints of lower extremity pain and swelling along with shortness of breath. He was noted to be anasarcic with pulmonary edema. He also appeared to have cellulitis extending from his lower extremities up to his lower abdomen. Patient was admitted and started on IV ceftriaxone as well as IV Lasix. He was requiring 2 L of oxygen via nasal cannula for his hypoxia. while inpatient, a TTE was performed which revealed an LVEF of 65 to 70% with grade 2 diastolic dysfunction. Patient appeared to be largely nonadherent to his medication regimen and follow-ups while at home. He had been managing his lower extremity wounds at home alone. He responded quite well to IV diuresis with Lasix. His cellulitis however remained present. We did discuss extending his hospitalization as he also required oxygen however he was adamant that he wanted to leave and go smoke. He was subsequently discharged on Cefdinir 300 mg twice daily for 7 days and Lasix 40 mg daily. issues requiring follow-up: --TSH was elevated at 13. I did start him on levothyroxine 88 mcg. Will likely need repeat TSH in 6 to 8 weeks. --Outpatient sleep study. --Wound care referral. --PFTs - ALLERGIES Allergies/Adverse Reactions: Allergies Allergy/AdvReac Type Severity Reaction Status Date / Time No Known Drug Allergies Allergy Verified 09/03/23 15:58 - MEDICATIONS Home Medications: Ambulatory Orders Medication Instructions Recorded Confirmed Albuterol Sulfate [Proair 90 mcg IH Q4H PRN #1 each 09/05/23 Respiclick] Cefdinir 300 mg PO BID #14 cap 09/05/23 Folic Acid 1 mg PO DAILY #30 tab 09/05/23 Furosemide [Lasix] 40 mg PO DAILY #30 tablet 09/05/23 Gentamicin 0.3% Ophth Drops 2 drops RIGHTEYE BID 7 Days #1 each 09/05/23 [Garamycin] HYDROcod/ACETAM 5/325 [[place] 5/325] 1 tab PO Q4HR PRN #15 tab 09/05/23 Levothyroxine [Synthroid] 88 mcg PO QDAC #30 tab 09/05/23 Potassium Chloride 10 meq PO DAILY #30 tab 09/05/23 - PHYSICAL EXAM AT DISCHARGE General Appearance: positive: No acute distress, Alert Cardiovascular: positive: Regular rate & rhythm, No murmur, No gallop Skin: positive: Other ( Significant stasis dermatitis on his lower extremities bilaterally. Cellulitis extending up to his lower abdomen.) - LABS Result Diagrams: 09/05/23 05:18 09/05/23 05:18
[2023-09-05 10:51] VITALS: BP 139/67; O2SAT 92
[2023-09-05] MEDS ORDERED: IPRATROPIUM/ALBUTEROL 3 ML NEB INH SCH (11:00)
[2023-09-05] MEDS ORDERED: OFLOXACIN 0.3% OPHTH DROPS RIGHTEYE SCH (13:00)
== END 2023-09-05 10:48 | disposition home or self-care (01) | DRG 189 ==
LOC: ED 15:42 → MS2 17:47
PROVIDERS: ADMIT Family Medicine; ATTEND Family Medicine
DX: J81.1 Chronic pulmonary edema (principal); L03.116 Cellulitis of left lower limb; L03.115 Cellulitis of right lower limb; L03.311 Cellulitis of abdominal wall; Z68.42 Body mass index [BMI] 45.0-49.9, adult; E66.01 Morbid (severe) obesity due to excess calories; F17.200 Nicotine dependence, unspecified, uncomplicated; J44.9 Chronic obstructive pulmonary disease, unspecified; G47.33 Obstructive sleep apnea (adult) (pediatric); K76.0 Fatty (change of) liver, not elsewhere classified; I87.2 Venous insufficiency (chronic) (peripheral); I10 Essential (primary) hypertension; I07.1 Rheumatic tricuspid insufficiency; R09.02 Hypoxemia; R79.89 Other specified abnormal findings of blood chemistry; R94.31 Abnormal electrocardiogram [ECG] [EKG]; R94.6 Abnormal results of thyroid function studies; Z79.899 Other long term (current) drug therapy; Z87.898 Personal history of other specified conditions; Z91.148 Patient's other noncompliance with medication regimen for other reason
CPT/HCPCS: 36415; 71045; 80048; 80053; 82607; 82746; 82803; 83690; 83735; 83880; 84443; 84484; 85025; 85610; 87040; 93005; 93307; 94640; 94664; 96374; 97161; 97165; 97530; 99285; A9270; J1650; J1940

== ENCOUNTER 2023-10-09 08:24 | Outpatient (CLI) | payer BC ==
[2023-10-09 14:34] LABS: BASOPHILS # (AUTO) 0.1 10^3/uL (0.0-0.1); EOSINOPHILS # (AUTO) 0.1 10^3/uL (0.0-0.7); EOSINOPHILS % (AUTO) 1.8 %; HCT - HEMATOCRIT 50.3 % (42.0-52.0); LYMPHOCYTES # (AUTO) 1.8 10^3/uL (1.5-3.5); LYMPHOCYTES % (AUTO) 29.9 %; MEAN CORPUSCULAR HEMOGLOBIN 30.7 pg (27.0-31.0); MEAN CORPUSCULAR HGB CONC 29.8 g/dL (32.0-36.0); MEAN CORPUSCULAR VOLUME 102.9 fL (80.0-94.0); MEAN PLATELET VOLUME 9.4 fL (7.4-11.4); MONOCYTES # (AUTO) 0.7 10^3/uL (0.0-1.0); MONOCYTES % (AUTO) 12.1 %; NEUTROPHILS # (AUTO) 3.3 10^3/uL (1.5-6.6); NEUTROPHILS % (AUTO) 54.9 %; PLT - PLATELET COUNT 191 10^3/uL (130-450); RED BLOOD COUNT 4.89 10^6/uL (4.70-6.10); RED CELL DISTRIBUTION WIDTH 17.4 % (12.0-15.0)
[2023-10-09 14:51] LABS: ALBUMIN 3.6 g/dL (3.2-5.5); ALBUMIN/GLOBULIN RATIO 0.8 (1.0-2.2); BILIRUBIN,TOTAL 0.7 mg/dL (0.2-1.0); CALCIUM 9.4 mg/dL (8.5-10.3); CREATININE 1.2 mg/dL (0.6-1.3); POTASSIUM 4.2 mmol/L (3.5-4.5); TOTAL PROTEIN 8.3 g/dL (6.4-8.9)
[2023-10-09 15:09] LABS: THYROID STIMULATING HORMONE 5.06 uIU/mL (0.34-5.60)
[2023-10-09 20:27] LABS: ESTIMATED AVERAGE GLUCOSE 123 mg/dL (70-100); HEMOGLOBIN A1c% 5.9 % (4.27-6.07)
== END 2023-10-09 08:25 | disposition home or self-care (01) ==
LOC: LAB.S 08:24
PROVIDERS: ATTEND Internal Medicine
DX: I50.33 Acute on chronic diastolic (congestive) heart failure (principal); R16.0 Hepatomegaly, not elsewhere classified; I87.399 Chronic venous hypertension (idiopathic) with other complications of unspecified lower extremity; R94.6 Abnormal results of thyroid function studies; Z72.0 Tobacco use
CPT/HCPCS: 36415; 80053; 83036; 83880; 84443; 85025

== ENCOUNTER 2024-04-08 14:47 | Inpatient (IN) ==
--- NOTE | 2024-04-08 14:59 | ED Physician Documentation ---
History of Present Illness Stated complaint Stated Complaint: SOA Chief complaint Chief Complaint: General Additonal information Additional information: 63YO male with ongoing tobacco abuse, HFpEF (09/10 admit, dischg summ reviewed), COPD and obesity. Wornsening SOA x mos with clear cough and worsening anasarca. No chest pain. He is most bothered by leg pain/weepy edema. Meds/Allgy Home Medications Ambulatory Orders Medication Instructions Recorded Confirmed albuterol sulfate 90 mcg/actuation 90 mcg IH Q4H PRN Shortness of 09/05/23 04/08/24 breath activated powder inhaler breath, wheezing #1 ea (ProAir RespiClick) folic acid 1 mg tablet 1 mg PO DAILY #30 tabs 09/05/23 04/08/24 furosemide 40 mg tablet 40 mg PO DAILY #30 tabs 09/05/23 04/08/24 gentamicin 0.3 % eye drops 2 drp RIGHTEYE BID 7 days #1 ea 09/05/23 04/08/24 levothyroxine 88 mcg tablet 88 mcg PO QDAC #30 tabs 09/05/23 04/08/24 potassium chloride 10 mEq 10 meq PO DAILY #30 tabs 09/05/23 04/08/24 tablet,extended release(part/cryst) Allergies Allergies Allergy/AdvReac Type Severity Reaction Status Date / Time No Known Drug Allergies Allergy Verified 04/08/24 15:02 [facility] Medical History Medical History (Updated 04/08/24 @ 16:53 by Sanjuanita Lombardo MD) Hypertension Eczema Gout Venous stasis dermatitis KAT neg for arterial and wound care for ulcer 01/2023. MSSA (+). 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 He was prescribed Cabergoline and synthroid. Patient did not follow-up as recommended and did not continue medication prescribed. He also failed to follow recommendations for additional thyroid mass evaluation. He did not have any surgical removal of the tumor or radiation therapy. History of hypothyroidism Social History Social History Smoking Status: Current every day smoker How many cigarettes a day do you smoke? (20 cigarettes=1 Pk): 30 Living arrangement: At home Living Condition: With spouse/s.o. Relationship: Do you feel safe in your home environment?: Yes Suffered physical, verbal, emotional, or financial abuse?: No History of Abuse: No ETOH Use: Liquor Frequency: Weekly Exam Constitutional normal general appearance mildly disheveled, smells of tobacco smoke Respiratory slightly labored, dimished b bases. Cardiovascular normal heart rate noted and regular rhythm noted Gastrointestinal abdomen soft to palpation and nontender to palpation Extremities 4+ bilateral weepy edema. Neurology GCS 15 Results Vitals Vitals: Vital Signs - 24 hr 04/08/24 14:59 04/08/24 15:07 04/08/24 16:22 Temperature 36.1 C L Temperature Source Skin Pulse Rate 64 61 Respiratory Rate 21 21 Blood Pressure 127/74 105/62 O2 Saturation 92 93 Oxygen Delivery Method O2 Source Nasal cannula Nasal cannula Nasal cannula Oxygen Flow Rate If not protocol: Oxygen Flow, liters/minute 3 3 3 Pain Intensity 8 8 6 04/08/24 16:24 Temperature Temperature Source Pulse Rate Respiratory Rate Blood Pressure O2 Saturation Oxygen Delivery Method Nasal Cannula O2 Source Oxygen Flow Rate 4 If not protocol: Oxygen Flow, liters/minute Pain Intensity Oxygen O2 Source Nasal cannula Oxygen Flow Rate 4 EKG (time done) 1636: EKG releavant findings:: EKG personally interpreted by author of this note. Relevant findings are: Normal sinus rhythm with a rate of 60, borderline prolonged TN i interval nonspecific ST-T wave changes. Q waves in V1 and V2. No ST elevation. Labs Labs: Laboratory Tests 04/08/24 15:10 WBC 8.9 RBC 5.00 Hgb 15.5 Hct 52.3 H MCV 104.6 H MCH 31.0 MCHC 29.6 L RDW 17.7 H Plt Count 246 MPV 8.2 Neut # (Auto) 6.1 Lymph # (Auto) 1.7 [place] # (Auto) 0.9 Eos # (Auto) 0.1 Baso # (Auto) 0.1 Absolute Nucleated RBC 0.00 Nucleated RBC % 0.0 PT 14.0 H INR 1.3 H Sodium 138 Potassium 4.2 Chloride 99 L Carbon Dioxide 36 H Anion Gap 3.0 L BUN 21 H Creatinine 0.9 Estimated GFR (MDRD) 86 L Glucose 94 Calcium 9.2 Total Bilirubin 0.5 AST 10 ALT 5 L Alkaline Phosphatase 61 Troponin I High Sens 7.2 B-Natriuretic Peptide 246 H Total Protein 7.8 Albumin 3.5 Globulin 4.3 H Albumin/Globulin Ratio 0.8 L Lipase 43 Rads (name of study) 1v cxr: Relevant Findings:: Final report received (Mild to moderate CHF) and EMP independent interpretation of test (Mild to moderate CHF) PD Medical Decision Making ED course ED course: 63-year-old gentleman presents with hypoxemia, sats 77 on room air at home. He looks to be in CHF, given the mild elevation in BNP and relatively unremarkable x-ray showing only mild CHF probably a combination of COPD and CHF. Otherwise workup demonstrates an unremarkable CBC, CMP showing probably chronic CO2 retention, INR mildly elevated at 1.3, chronic from prior values. Troponin negative. He was administered Lasix, DuoNeb, Solu-Medrol. Spoke with Dr. Lombardo for admission at 4:05 PM. Discharge Plan Discharge Patient Disposition: 67 [facility] DC/Xfer Condition: Serious Clinical Impression: (HFpEF) heart failure with preserved ejection fraction Qualifiers: Heart failure chronicity: acute on chronic Qualified Code(s): I50.33 - Acute on chronic diastolic (congestive) heart failure COPD (chronic obstructive pulmonary disease) Qualifiers: COPD type: unspecified COPD Qualified Code(s): J44.9 - Chronic obstructive pulmonary disease, unspecified Respiratory failure Qualifiers: Chronicity: acute Respiratory failure complication: hypoxia Qualified Code(s): J96.01 - Acute respiratory failure with hypoxia Prescriptions: No Action levothyroxine 88 MCG tablet 88 mcg PO QDAC Qty: 30 0RF gentamicin 75 DROPS/5 ML drops 2 drp RIGHTEYE BID 7 Days Qty: 1 0RF folic acid 1 MG tablet 1 mg PO DAILY Qty: 30 0RF ProAir RespiClick 90 MCG aerosol powdr breath activated 90 mcg IH Q4H PRN (Reason: Shortness of breath, wheezing) Qty: 1 0RF furosemide 40 MG tablet 40 mg PO DAILY Qty: 30 0RF potassium chloride 10 MEQ tablet,ER particles/crystals 10 meq PO DAILY Qty: 30 0RF Print Language: Persian
[2024-04-08] MEDS: FUROSEMIDE 40 MG/4 ML VIAL IVP STA (15:11)
[2024-04-08 15:17] LABS: BASOPHILS # (AUTO) 0.1 10^3/uL (0.0-0.1); BASOPHILS % (AUTO) 0.6 %; EOSINOPHILS # (AUTO) 0.1 10^3/uL (0.0-0.7); EOSINOPHILS % (AUTO) 0.6 %; HCT - HEMATOCRIT 52.3 % (42.0-52.0); HGB - HEMOGLOBIN 15.5 g/dL (14.0-18.0); LYMPHOCYTES # (AUTO) 1.7 10^3/uL (1.5-3.5); LYMPHOCYTES % (AUTO) 19.1 %; MEAN CORPUSCULAR HGB CONC 29.6 g/dL (32.0-36.0); MEAN CORPUSCULAR VOLUME 104.6 fL (80.0-94.0); MEAN PLATELET VOLUME 8.2 fL (7.4-11.4); MONOCYTES # (AUTO) 0.9 10^3/uL (0.0-1.0); MONOCYTES % (AUTO) 10.4 %; NEUTROPHILS # (AUTO) 6.1 10^3/uL (1.5-6.6); NEUTROPHILS % (AUTO) 68.8 %; PLT - PLATELET COUNT 246 10^3/uL (130-450); RED CELL DISTRIBUTION WIDTH 17.7 % (12.0-15.0); WHITE BLOOD COUNT 8.9 x10^3/uL (4.8-10.8)
[2024-04-08 15:22] LABS: INR 1.3 (0.8-1.2)
[2024-04-08 15:33] LABS: ALBUMIN 3.5 g/dL (3.2-5.5); ALBUMIN/GLOBULIN RATIO 0.8 (1.0-2.2); BILIRUBIN,TOTAL 0.5 mg/dL (0.2-1.0); CALCIUM 9.2 mg/dL (8.5-10.3); CREATININE 0.9 mg/dL (0.6-1.3); POTASSIUM 4.2 mmol/L (3.5-4.5); TOTAL PROTEIN 7.8 g/dL (6.4-8.9)
[2024-04-08 15:38] LABS: TROPONIN I HIGH SENSITIVITY 7.2 ng/L (2.3-19.7)
--- NOTE | 2024-04-08 15:44 | XRAY Report ---
PROCEDURE: XR Chest 1V INDICATIONS: SOA TECHNIQUE: One view of the chest was acquired. COMPARISON: Chest x-ray 09/03/2023 FINDINGS: Surgical changes and devices: None. Lungs and pleura: Mild bilateral central perihilar opacification extending to the lung bases with an apical basal gradient. Distinctness of the hemidiaphragms and costophrenic angles. No pneumothorax. Mediastinum: Mediastinal contours appear normal. Borderline cardiomegaly. Bones and chest wall: No suspicious bony lesions. Overlying soft tissues appear unremarkable. IMPRESSION: Mild CHF exacerbation versus sequelae of aspiration. Reviewed by: Danilo Rodriguez MD on 04/08/2024 3:43 PM PST Approved by: Danilo Rodriguez MD on 04/08/2024 3:43 PM PST Station ID: [id number]
[2024-04-08] MEDS: methylPREDNISolone SUCCINATE 125 MG/2 ML VIAL IVP STA (16:16)
--- NOTE | 2024-04-08 16:23 | HISTORY & PHYSICAL EXAMINATION ---
Chief Complaint Chief Complaint Chief Complaint: Cough and shortness of breath, Worse, with leg edema History of Present Illness Admitted From Admitted From:: Home History Obtained From Records Reviewed: Expanse History obtained from: Dr. Ray Exam Limitations: None History of Present Illness HPI Comment/Other: This is a 63-year-old white male who has a known history with preserved ejection fraction and an admission in August 2023, chronic tobacco abuse resulting in COPD, morbid obesity. He presented to the emergency room in August with the same problems he has today. He had stopped taking his Lasix for a month and it become significantly edematous. His skin was also getting red and hot to touch. And it was extending into his abdomen. He was felt to have significant stasis dermatitis of his lower extremities with an KAT that was normal recently. Without admission TSH was elevated at 13 and he was started on levothyroxine. He was instructed to go get an outpatient sleep study, a wound care referral, and pulmonary function studies. He did get wound care referral with our clinic. But he did not get an outpatient sleep study or a pulmonary function study. Echocardiogram had left ventricular wall thickness that was normal with an ejection fraction of 65 to 70%. The right ventricle was normal in size and function. RVSP at rest was 48 mmHg with mild tricuspid regurg. The ascending aorta was mildly dilated at 4.2 cm. He had a severe increase in left atrial volume index and moderate right atrial enlargement. He was seen in follow-up after the August. September visit. At that time his edema had improved. He gone to the wound clinic and extensive debridement and cleaning was done and his legs were looking better, he was feeling better. Since that time he has not followed up with our local primary care provider. When I ask him who he has been seeing he is vague. He cannot quite remember. He last called the clinic January 29 for swelling of the elbow. He was complaining of it being the size of water balloon and had been there for several months and not getting better. He was referred to the walk-in clinic. But I am not seeing any walk-in clinic visit Weight in the office in September was 275 lb . The lowest he has been is 265 pounds in January 2023. Today's weight, according to the ER chart, is 259.3 pounds. He tells me that he is compliant with his medications and diet. He is eating a low-salt diet. He takes his pills what he supposed to. He first left the hospital he actually felt good. And from September until about December or January he felt stable. And in spite of that the leg edema has been gradually creeping back on. His legs are increasingly painful. He is annoyed and tells me that this is the whole reason he is here. That this whole "congestive heart failure with edema is crap". He could care less about me diuresing him and he wants me to give him pain medicines. And he interrupts me by telling me that "and that oxycodone does not work". Over the last 2 months his bilateral lower extremity keeps on getting worse. Now into his belly. And he feels like he has been more short of breath over the last few days. Denies fever, chills, change in medication. No one else is sick around him. He has orthopnea. He has limited mobility because of the edema and pain in his legs. He says that he is cut back on his smoking and he only smokes half a pack a day. In the emergency room temperature was 36.1. Heart rate 64. Respirations 21. 92% saturated on 3 L. When he is off oxygen and walking he desaturates to 77% on room air. Blood pressure is 127/74. He is able to get up on the gurney without severe dyspnea. He is able to speak in a normal tone of voice. But now he is sitting upright on the gurney, leaning forward on the bedside table and a cane. Complaining bitterly of pain.The ER doctor found to have slightly labored respiration, and diminished breath sounds at the bases but no rhonchi or crackles. BUN is 21, creatinine is 0.9. His carbon dioxide is 36. When he was here in August he was 40. Chloride is 99. Potassium normal at 4.2. BNP is 246. He seems to be in that range consistently since August. In August he was 294. CBC has normal white cell count. Normal hemoglobin. Hematocrit slightly elevated at 52.3. MCV is 104. Platelets 246. His chest x-ray has mild CHF exacerbation versus sequela of aspiration. Meds/Allgy Home Medications Ambulatory Orders Medication Instructions Recorded Confirmed albuterol sulfate 90 mcg/actuation 90 mcg IH Q4H PRN Shortness of 09/05/23 04/08/24 breath activated powder inhaler breath, wheezing #1 ea (ProAir RespiClick) folic acid 1 mg tablet 1 mg PO DAILY #30 tabs 09/05/23 04/08/24 furosemide 40 mg tablet 40 mg PO DAILY #30 tabs 09/05/23 04/08/24 gentamicin 0.3 % eye drops 2 drp RIGHTEYE BID 7 days #1 ea 09/05/23 04/08/24 levothyroxine 88 mcg tablet 88 mcg PO QDAC #30 tabs 09/05/23 04/08/24 potassium chloride 10 mEq 10 meq PO DAILY #30 tabs 09/05/23 04/08/24 tablet,extended release(part/cryst) Allergies Allergies Allergy/AdvReac Type Severity Reaction Status Date / Time No Known Drug Allergies Allergy Verified 04/08/24 15:02 [facility] Medical History Medical History (Updated 04/08/24 @ 18:14 by Sanjuanita Lombardo MD) History of macrocytic anemia Hypertension Eczema Gout Venous stasis dermatitis KAT neg for arterial and wound care for ulcer 01/2023. MSSA (+). 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 He was prescribed Cabergoline and synthroid. Patient did not follow-up as recommended and did not continue medication prescribed. He also failed to follow recommendations for additional thyroid mass evaluation. He did not have any surgical removal of the tumor or radiation therapy. History of hypothyroidism Family History Family History (Updated 04/08/24 @ 18:17 by Sanjuanita Lombardo MD) Mother Heart attack Father Heart failure Brother Heart failure Daughter No problems noted. Son No problems noted. Social History Social History (Updated 04/08/24 @ 17:27 by Sanjuanita Lombardo MD) Smoking Status: Current every day smoker Number of Years Smoked: 35 How many cigarettes a day do you smoke? (20 cigarettes=1 Pk): 30 Living arrangement: At home Marital Status: Living Condition: With family Support Person: Yes Relationship: Spouse Living Situation Details: he and live with daughter Physical Activity: Chairfast Level: Assisted Home Mobility Equipment: Wheeled walker and Wheelchair Do you feel safe in your home environment?: Yes Suffered physical, verbal, emotional, or financial abuse?: No History of Abuse: No ETOH Use: Liquor Frequency: Weekly Substance Use: denies use Occupation: hasn't worked for years due to his lungs and heart. on SSI POLST Patient has POLST: No POLST Status: Full Code Review of Systems Barely able to get him to state. He really is cranky and wants something to take care of his leg pain. He is irritated that we are focused on his congestive heart failure Constitutional Reports: Fatigue, Malaise, Weakness, Weight gain and Other (Says he has not seen a washerette machine operator for his sella tumor for years now. ); Denies: Fever, Chills, Diaphoresis or Night sweats Eyes Denies: Pain, Blurry vision, Field loss or Vision loss Ears, nose, mouth, and throat Reports: Nasal congestion; Denies: Nasal pain, Nasal discharge, Nasal obstruction or Throat swelling Cardiovascular Reports: swelling of feet/ankles, shortness of breath with exertion, shortness of breath when lying down, Decreased exercise tolerance and other (He does not have a pick pulling machine tender.); Denies: Irregular heart rate, chest pain, palpitations or Syncope Respiratory Reports: Shortness of breath, Cough, Apnea, Snoring, Orthopnea, SOB at rest and SOB with exertion; Denies: Sputum production, Change in phlegm color, Wheezing or Coughing up blood Gastrointestinal Reports: Poor appetite; Denies: Abdominal pain, Abdominal distention, Nausea, Vomiting, Heartburn or Diarrhea Genitourinary Reports: Incontinence and Urinary urgency Musculoskeletal Reports: Back pain, Extremity pain (severe over his legs. ) and Extremity swelling Integumentary/Breast Reports: Rash (chronic of his legs), Skin tenderness (of his legs), Skin swelling (of his legs) and Sores (of his legs) Neurological Reports: General weakness and Weakness in extremities Psychiatric Reports: Depression, Irritability and Difficulty concentrating; Denies: Paranoia, Delusions, Visual hallucinations, Auditory hallucinations or Tactile hallucinations Endocrine Reports: Fatigue Hematologic/Lymphatic Denies: Anemia, Easy bruising or Petechiae Allergic/Immunologic Denies: Hives, Throat swelling or Wheezing Prior Level of Functionality: Walks with a cane and a walker. No longer can live alone and that is why he moved in with daughter. He needs help with getting dressed. Food is brought to him and he can feed himself. Severely diminished mobility because of his legs, edema, and dyspnea on exertion Exam Exam 5 foot 7 inch white male at 117.9 kg. Appears severely morbidly obese, disheveled, malodorous. Legs are wrapped with dressing as well as compression gauze. Able to have conversation with me without severe tachypnea or increased respiratory effort Constitutional alert Complains of moderate to severe distress from leg pain HENMT normocephalic, head/scalp atraumatic and hearing grossly normal bilaterally Eyes PERRL, EOMs intact bilaterally and conjunctivae normal Neck/C-Spine supple (Thickness makes it difficult to assess for JVD or masses) Chest inspection of breast(s) abnormal Gynecomastia Respiratory A little bit tachypneic as he is talking to me but able to complete sentences. He has a very large AP diameter. A barrel chest. Diminished sounds at the bases. Tubular breath sounds in the mid lung chavez. But does not sound wet nor does he have crackles or rhonchi Cardiovascular normal heart rate noted and regular rhythm noted I can barely hear his heart tones with such a large chest. I am not hearing a murmur. I do not feel an RV lift Gastrointestinal hugely obese pannus, and very difficult to assess for hepatosplenomegaly. Bowel sounds present. Palpation does not really cause any pain. No rebound.The lower part of his abdominal wall is edematous. Genitourinary Edema of the scrotum. Extremities Severe venous stasis dermatitis of both lower extremities. He is not happy with me because I am unwrapping to look. No cellulitis. Red, but not hot. No purulent drainage. 3+ edema that starts at his feet and goes all the way up into the legs, scrotum, buttocks. 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 In a gentleman who does not take oxygen at home. He does not appear to be infected with pneumonia, and he is adamant that he is compliant with his medications at home for his heart failure. He is not having an MD. He does not have acute COPD exacerbation. I am at a loss to explain why he is decompensated so for severely and why he has such severe anasarca. Plan: Inpatient status Treat heart failure with preserved ejection fraction with diuresis Treat COPD with regular scheduled nebulizers and 3 doses of steroids Qualifiers: Chronicity: acute Respiratory failure complication: hypoxia Qualified Code(s): J96.01 - Acute respiratory failure with hypoxia (2) (HFpEF) heart failure with preserved ejection fraction: Plan: Again, he is adamant that he is compliant with diet and medications. Plan: Check toxicology screen Start Lasix 20 mg IV push twice daily Daily weights with a low-salt diet Recheck echocardiogram. It has been 6 months but he could have developed worse RVSP depending on his lungs and that RVSP could be contributing to problem #2 Qualifiers: Heart failure chronicity: acute on chronic Qualified Code(s): I50.33 - Acute on chronic diastolic (congestive) heart failure (3) COPD (chronic obstructive pulmonary disease): Plan: At home he only uses ProAir Respiclick. Here I will use DuoNeb 4 times daily RT. Solu-Medrol 40 mg IV push x 3 doses Nicotine patch. I would recommend, again, that he seek evaluation with our sleep clinic to see if obstructive sleep apnea and COPD are causing pulmonary hypertension and right-sided heart failure. I would also get PFTs to quantify the severity of his emphysema. I have also asked him to stop smoking. Qualifiers: COPD type: emphysema Emphysema type: unspecified Qualified Code(s): J 43.9 - Emphysema, unspecified (4) Venous stasis dermatitis: Plan: I only saw the top one third of his shins and calves. He did not want me to take with the rest of his bandages because it was too painful. As such, tomorrow, I recommend that the nurses spend some time taking the bandages off, and the hospitalist review his skin. I Ordered Tylenol as needed for mild pain, Motrin as needed mild pain, and oxycodone 5 mg as needed moderate pain. He is irritated and says "that just does not help". I explained that I am not can to be behind prescribing intravenous opioids. Hoping that with reduction of his edema, he will have less pain. This time no antibiotics since he does not have a fever and white cell count is normal. (5) Macrocytosis without anemia: Plan: there is a diagnosis in his clinic chart that he has a history of alcohol abuse. He is on thiamine. But he currently denies alcohol abuse to me. He drinks maybe 3 drinks a week on a busy week. Macrocytosis can also come from hypothyroidism which she has Plan: Check B12 and folate. Check TSH. I will also asked for pathology slide review making sure no early MDS. (6) Pituitary tumor: Plan: As well as an enlarged thyroid found for evaluation of thyroid or neck mass. The patient has not been seeking therapy for this. He is specifically declined surgical intervention. He does not remember the last time he ever saw endocrinology for evaluation. With his August admission he was hypothyroid and started on Synthroid 88 mcg a day. Plan: Patient is not interested in a referral Check TSH for tomorrow morning (7) Hypothyroid: Plan: Check TSH for tomorrow morning. He states he is compliant with his Synthroid (8) Full code status: Plan: When asked if he wants to be resuscitated in the event that he stops breathing or his heart stops, he says yes. He acknowledges that he is not happy. He is disabled. He is in a lot of pain. He is miserable. He had to lose his house and move in with his daughter. His is also disabled. I explained that survivability from full code after everything has been done is not a very good survivability. I described code. He wants to be a full code. Lab Results 04/08/24 15:10 04/08/24 15:10 Core Measures Anticipated LOS I expect patient to be DC'd or transferred within 96 hours.: Yes DVT/VTE - Prophylaxis VTE/DVT Prophylaxis med ordered at admit?: Yes
[2024-04-08] MEDS: IPRATROPIUM/ALBUTEROL 3 ML NEB INH STA (17:11)
[2024-04-08] MEDS ORDERED: ONDANSETRON ODT 4 MG TABLET TL PRN (18:40)
[2024-04-08] MEDS ORDERED: ONDANSETRON 4 MG/2 ML VIAL IVP PRN (18:40)
[2024-04-08] MEDS: FUROSEMIDE 20 MG/2 ML VIAL IVP SCH (19:24)
[2024-04-08] MEDS: NICOTINE 21 MG PATCH TOP STA (19:24)
[2024-04-08] MEDS: SODIUM CHLORIDE FLUSH 0.9% 10 ML SYRINGE IVP SCH (19:24)
[2024-04-08] MEDS: IPRATROPIUM/ALBUTEROL 3 ML NEB INH SCH (19:50)
[2024-04-08] MEDS ORDERED: GENTAMICIN 0.3% OPHTH DROPS RIGHTEYE SCH (21:00)
[2024-04-08 21:06] LABS: AMPHETAMINE SCREEN,URINE NEGATIVE (NEGATIVE); BARBITURATE SCREEN,UR NEGATIVE (NEGATIVE); BENZODIAZEPINES SCREEN, URINE NEGATIVE (NEGATIVE); BUPRENORPHINE SCREEN, URINE NEGATIVE (NEGATIVE); COCAINE SCREEN URINE NEGATIVE (NEGATIVE); METHADONE SCREEN, URINE NEGATIVE (NEGATIVE); METHAMPHETAMINES SCREEN, URINE NEGATIVE (NEGATIVE); OPIATE SCREEN, URINE NEGATIVE (NEGATIVE); OXYCODONE SCREEN, URINE NEGATIVE (NEGATIVE); THC CANNABINOID SCREEN, URINE NEGATIVE (NEGATIVE); TRICYCLIC ANTIDEPRESSANT,URINE NEGATIVE (NEGATIVE)
[2024-04-08] MEDS: methylPREDNISolone SUCCINATE 40 MG/ML VIAL IVP SCH (21:56)
[2024-04-08] MEDS: SODIUM CHLORIDE FLUSH 0.9% 10 ML SYRINGE IVP PRN (21:56)
[2024-04-09] MEDS: oxyCODONE 5 MG TABLET PO PRN (00:19)
[2024-04-09] MEDS: ACETAMINOPHEN 325 MG TABLET PO PRN (00:20)
[2024-04-09 05:58] LABS: BASOPHILS % (AUTO) 0.2 %; HGB - HEMOGLOBIN 16.3 g/dL (14.0-18.0); LYMPHOCYTES # (AUTO) 0.5 10^3/uL (1.5-3.5); LYMPHOCYTES % (AUTO) 7.9 %; MEAN CORPUSCULAR HEMOGLOBIN 31.4 pg (27.0-31.0); MEAN CORPUSCULAR HGB CONC 30.8 g/dL (32.0-36.0); MEAN CORPUSCULAR VOLUME 102.1 fL (80.0-94.0); MEAN PLATELET VOLUME 8.3 fL (7.4-11.4); MONOCYTES # (AUTO) 0.1 10^3/uL (0.0-1.0); NEUTROPHILS # (AUTO) 5.5 10^3/uL (1.5-6.6); NEUTROPHILS % (AUTO) 89.8 %; PLT - PLATELET COUNT 218 10^3/uL (130-450); RED BLOOD COUNT 5.19 10^6/uL (4.70-6.10); RED CELL DISTRIBUTION WIDTH 17.3 % (12.0-15.0); WHITE BLOOD COUNT 6.1 x10^3/uL (4.8-10.8)
[2024-04-09 06:11] LABS: CREATININE 1.1 mg/dL (0.6-1.3); POTASSIUM 4.4 mmol/L (3.5-4.5)
[2024-04-09] MEDS: LEVOTHYROXINE 88 MCG TABLET PO SCH (06:27)
[2024-04-09] MEDS: FOLIC ACID 1 MG TABLET PO SCH (08:49)
[2024-04-09] MEDS: ENOXAPARIN 40 MG/0.4 ML SYRINGE SUBQ SCH (08:49)
[2024-04-09] MEDS ORDERED: FUROSEMIDE 40 MG TABLET PO SCH (09:00)
--- NOTE | 2024-04-09 09:00 | PROVIDER PROGRESS NOTE ---
Subjective Subjective Subjective: Patient states that he still has continued leg pain in both of his legs. He states that this problem has been ongoing for months. He wrapped some of his self at home. He does not specify whether he has noticed any draining ulcerations or wounds. He has not seen a wound doctor for few years. He states that he is compliant with his Lasix, and he has been taking it daily. He does state that his legs have been swelling. He denies any chest pain. He does endorse some shortness of breath, which worsens with ambulation. He denies any cough, fevers, or chills. Current Medications Current Medications Current Medications: Current Medications Generic Name Dose Route Start Last Admin Trade Name Freq PRN Reason Stop Dose Admin Acetaminophen 650 mg 04/08/24 18:40 04/09/24 08:49 Acetaminophen 325 Mg Tablet PO 650 mg Q4HR PRN Administration Pain 1 to 4, or Fever Albuterol 2.5 mg 04/08/24 18:40 Albuterol Neb 2.5 Mg/3 Ml INH Q2HR PRN Wheezing Albuterol/Ipratropium 3 ml 04/08/24 19:00 04/09/24 07:17 Ipratropium/Albuterol 3 Ml Neb INH 3 ml RTQ6H SMITH Administration Enoxaparin Sodium 40 mg 04/09/24 09:00 04/09/24 08:49 Enoxaparin 40 Mg/0.4 Ml Syringe SUBQ 40 mg DAILY SMITH Administration Folic Acid 1 mg 04/09/24 09:00 04/09/24 08:49 Folic Acid 1 Mg Tablet PO 1 mg DAILY SMITH Administration Furosemide 20 mg 04/08/24 18:40 04/09/24 06:26 Furosemide 20 Mg/2 Ml Vial IVP 20 mg BIDDIURETIC SMITH Administration Levothyroxine Sodium 88 mcg 04/09/24 07:00 04/09/24 06:27 Levothyroxine 88 Mcg Tablet PO 88 mcg QDAC SMITH Administration Methylprednisolone 40 mg 04/08/24 22:00 04/09/24 06:27 Methylprednisolone Succinate 40 Mg/Ml Vial IVP 04/09/24 22:01 40 mg TID SMITH Administration Ondansetron HCl 4 mg 04/08/24 18:40 Ondansetron Odt 4 Mg Tablet TL Q6HR PRN Nausea / Vomiting Ondansetron HCl 4 mg 04/08/24 18:40 Ondansetron 4 Mg/2 Ml Vial IVP Q6HR PRN Nausea / Vomiting Oxycodone HCl 5 mg 04/08/24 18:40 04/09/24 08:49 Oxycodone 5 Mg Tablet PO 5 mg Q4HR PRN Administration Pain 5 to 7 Sodium Chloride 10 ml 04/08/24 18:40 04/09/24 06:28 Sodium Chloride Flush 0.9% 10 Ml Syringe IVP 10 ml PRN PRN Administration NEEDED PER PROVIDER ORDERS Sodium Chloride 10 ml 04/08/24 18:40 04/09/24 08:50 Sodium Chloride Flush 0.9% 10 Ml Syringe IVP 10 ml 0100,0900,1700 SMITH Administration Objective Vital Signs/Intake & Output Reviewed Vital Signs: Yes Vital Signs: Vital Signs x48h Temp Pulse Pulse Resp BP Pulse Ox O2 Flow Rate 04/09/24 08:40 98.2 F 61 20 112/53 L 88 L 4 04/09/24 07:17 4 04/09/24 07:17 62 20 04/09/24 01:13 6 04/09/24 01:13 76 20 6 Intake & Output: Intake & Output 04/07/24 04/08/24 04/09/24 04/10/24 05:59 05:59 05:59 05:59 Intake Total 300 / 300 Output Total 1470 / 1470 Balance -1170 / -1170 Weight (kg) 109 kg Objective General Appearance: positive No acute distress, Alert and Other (Morbidly obese; disheveled); negative Anxious Eyes Bilateral: positive Normal inspection, PERRL and EOMI ENT: positive ENT inspection nml, Pharynx nml and No signs of dehydration Neck: positive Nml inspection, Thyroid nml and No JVD Respiratory: positive Chest non-tender, No respiratory distress, Breath sounds nml and Wheezes (expiratory wheezes in bilateral upper lung chavez ); negative Rales or Rhonchi Cardiovascular: positive Regular rate & rhythm, No murmur and No gallop Abdomen: positive Non-tender, No distention and Other (some pitting edema 1+ noted in lower abdominal wall ); negative Rebound, Hepatomegaly, Splenomegaly or Mass Back: positive Nml inspection; negative CVA tenderness (R) or CVA tenderness (L) Skin: positive Color nml and Skin rash (bilateral lower extremity erythema; 3+ pitting edema noted) Extremities: positive Full ROM, Pedal edema (3+ bilaterally ) and Other (tenderness to palpation in bilateral lower extremities ) Neurologic/Psychiatric: positive Oriented x3 and Motor nml Lab Results 04/09/24 05:36 04/09/24 05:36 Other Labs: Lab Results x24hrs 04/09/24 04/08/24 04/08/24 Range/Units 05:36 20:44 15:10 WBC 6.1 8.9 (4.8-10.8) x10^3/uL RBC 5.19 5.00 (4.70-6.10) 10^6/uL Hgb 16.3 15.5 (14.0-18.0) g/dL Hct 53.0 H 52.3 H (42.0-52.0) % MCV 102.1 H 104.6 H (80.0-94.0) fL MCH 31.4 H 31.0 (27.0-31.0) pg MCHC 30.8 L 29.6 L (32.0-36.0) g/dL RDW 17.3 H 17.7 H (12.0-15.0) % Plt Count 218 246 (130-450) 10^3/uL MPV 8.3 8.2 (7.4-11.4) fL Neut # (Auto) 5.5 6.1 (1.5-6.6) 10^3/uL Lymph # (Auto) 0.5 L 1.7 (1.5-3.5) 10^3/uL Real # (Auto) 0.1 0.9 (0.0-1.0) 10^3/uL Eos # (Auto) 0.0 0.1 (0.0-0.7) 10^3/uL Baso # (Auto) 0.0 0.1 (0.0-0.1) 10^3/uL Absolute Nucleated RBC 0.00 0.00 x10^3/uL Nucleated RBC % 0.0 0.0 /100WBC PT 14.0 H (9.9-12.6) secs INR 1.3 H (0.8-1.2) Sodium 136 138 (135-145) mmol/L Potassium 4.4 4.2 (3.5-4.5) mmol/L Chloride 95 L 99 L (101-111) mmol/L Carbon Dioxide 35 H 36 H (21-32) mmol/L Anion Gap 6.0 3.0 L (6-13) BUN 22 H 21 H (6-20) mg/dL Creatinine 1.1 0.9 (0.6-1.3) mg/dL Estimated GFR (MDRD) 68 L 86 L (>89) Glucose 153 H 94 (74-104) mg/dL Calcium 9.0 9.2 (8.5-10.3) mg/dL Total Bilirubin 0.5 (0.2-1.0) mg/dL AST 10 (10-42) IU/L ALT 5 L (10-60) IU/L Alkaline Phosphatase 61 (42-121) IU/L Troponin I High Sens 7.2 (2.3-19.7) ng/L B-Natriuretic Peptide 246 H (5-100) pg/mL Total Protein 7.8 (6.4-8.9) g/dL Albumin 3.5 (3.2-5.5) g/dL Globulin 4.3 H (2.1-4.2) g/dL Albumin/Globulin Ratio 0.8 L (1.0-2.2) Lipase 43 (11-82) U/L Urine Opiates Screen NEGATIVE (NEGATIVE) Ur Buprenorphine Scrn NEGATIVE (NEGATIVE) Ur Oxycodone Screen NEGATIVE (NEGATIVE) Urine Methadone Screen NEGATIVE (NEGATIVE) Ur Barbiturates Screen NEGATIVE (NEGATIVE) Ur Tricyclics Screen NEGATIVE (NEGATIVE) Ur Phencyclidine Scrn NEGATIVE (NEGATIVE) Ur Amphetamine Screen NEGATIVE (NEGATIVE) U Methamphetamines Scrn NEGATIVE (NEGATIVE) U Benzodiazepines Scrn NEGATIVE (NEGATIVE) Urine Cocaine Screen NEGATIVE (NEGATIVE) U Cannabinoids Screen NEGATIVE (NEGATIVE) Ur Drug Screen Comment CUTOFF CONC BELOW: Assessment/Plan Problem List (1) Respiratory failure: Impression: Patient was 77% on room air on admission. He does not use supplemental oxygen at home. Does have history of COPD and HFpEF. Oxygen weaned down from 6 L to 4L. Mild expiratory wheezing. Completed 3 doses of IV Solu-Medrol. Will continue oral prednisone 40 mg for 4 more days. No cough, no sputum production. Will hold off on azithromycin. Continue DuoNebs every 4 hours as needed. Chest x-ray notes cardiomegaly, some infiltrates. Continue IV Lasix, 20 mg twice daily today, will transition to oral tomorrow. Continue strict ins and outs, low-salt diet, fluid restriction. Of note urine output in the last 24 hours was 1470 cc, for negative balance of 1170 cc. Repeat ECHO ordered, pending. Will continue daily weights as well. Qualifiers: Chronicity: acute Respiratory failure complication: hypoxia Qualified Code(s): J96.01 - Acute respiratory failure with hypoxia (2) (HFpEF) heart failure with preserved ejection fraction: Impression: Continue IV Lasix 20 mg twice a day. Continue daily weights, sodium restriction, fluid restriction. Repeat echo ordered to see if there is been any progression of his heart failure, pending. Qualifiers: Heart failure chronicity: acute on chronic Qualified Code(s): I50.33 - Acute on chronic diastolic (congestive) heart failure (3) COPD (chronic obstructive pulmonary disease): Impression: Patient recently was started on inhalers in the outpatient setting. Needs PFTs, sleep study done in outpatient setting. Continues to smoke tobacco daily. Nicotine patch ordered. Continue to wean oxygen as tolerated. Continue DuoNebs every 6 hours. Qualifiers: COPD type: emphysema Emphysema type: unspecified Qualified Code(s): J 43.9 - Emphysema, unspecified (4) Venous stasis dermatitis: Impression: Patient with longstanding and extensive venous stasis dermatitis noted in bilateral lower extremities. He wraps them himself, changes wrapping every few days. Has not seen any wound care in a few years. Legs unwrapped today - some erythema, drainage noted with bleeding but no purulence. Exquisitely tender to even light touch. Will complete 7 day course of Bactrim for possible superimposed cellulitis on top of venous stasis. Patient describes a burning pain with numbness. Will trial gabapentin. Will increase pain regimen to include IV morphine for severe pain. Continue Tylenol, Motrin, oxycodone for pain. (5) Macrocytosis without anemia: Impression: B12, folate, TSH ordered, pending. Has former history of chronic alcohol use; this is likely due to bone marrow suppression in setting of this. (6) Pituitary tumor: Impression: Enlarged thyroid also found on evaluation. Has declined surgical intervention, and has not seen endocrinology for evaluation. Continue his home Synthroid 88 mcg a day. (7) Hypothyroid: Impression: Continue his home Synthroid 88 mcg a day. Qualifiers: Hypothyroidism type: unspecified Qualified Code(s): E03.9 - Hypothyroidism, unspecified
[2024-04-09 09:38] LABS: THYROID STIMULATING HORMONE 2.68 uIU/mL (0.34-5.60)
--- NOTE | 2024-04-09 10:37 | PHARMACY PROGRESS NOTE ---
Best Possible Medication History Admit Date and Time: 04/08/24 1618 Home Medications Medication Instructions Recorded Confirmed Type albuterol sulfate 90 mcg/actuation 90 mcg IH Q4H PRN Shortness of 09/05/23 04/08/24 Rx breath activated powder inhaler breath, wheezing #1 ea (ProAir RespiClick) folic acid 1 mg tablet 1 mg PO DAILY #30 tabs 09/05/23 04/08/24 Rx furosemide 40 mg tablet 40 mg PO DAILY #30 tabs 09/05/23 04/08/24 Rx gentamicin 0.3 % eye drops 2 drp RIGHTEYE BID 7 days #1 ea 09/05/23 04/08/24 Rx levothyroxine 88 mcg tablet 88 mcg PO QDAC #30 tabs 09/05/23 04/08/24 Rx potassium chloride 10 mEq 10 meq PO DAILY #30 tabs 09/05/23 04/08/24 Rx tablet,extended release(part/cryst) Processed by: Nursing Medication History completed: Yes Patient Interview: Completed Secondary Source(s): Pharmacy records and Insurance records [facility] Statement: As the person ultimately responsible for medication therapy, providers are able to order a medication from an existing home medication list in [facility] via the "Reconcile Routine" prior to Confirmation of that medication by operations support professionals. Such practice is discouraged except when the physician, in their clinical judgment, deems that a medical need exists for a medication without regard to previous use.
[2024-04-09] MEDS: NICOTINE 14 MG PATCH TOP SCH (11:13)
[2024-04-09] MEDS: predniSONE 20 MG TABLET PO SCH (11:14)
[2024-04-09] MEDS: GABAPENTIN 300 MG CAPSULE PO SCH (11:14)
[2024-04-09] MEDS: MORPHINE 2 MG/ML CARPUJECT IVP PRN (11:14)
[2024-04-09] MEDS: SULFAMETH/TRIMETH DS 800/160 MG TABLET PO SCH (11:21)
[2024-04-09] MEDS: ZINC OXIDE 20% OINT 30 GM TUBE TOP PRN (21:43)
[2024-04-10] MEDS: ALBUTEROL NEB 2.5 MG/3 ML INH PRN (02:38)
[2024-04-10 06:14] LABS: BASOPHILS % (AUTO) 0.2 %; EOSINOPHILS % (AUTO) 0.3 %; HCT - HEMATOCRIT 53.8 % (42.0-52.0); HGB - HEMOGLOBIN 16.2 g/dL (14.0-18.0); LYMPHOCYTES # (AUTO) 0.5 10^3/uL (1.5-3.5); LYMPHOCYTES % (AUTO) 5.9 %; MEAN CORPUSCULAR HEMOGLOBIN 31.6 pg (27.0-31.0); MEAN CORPUSCULAR HGB CONC 30.1 g/dL (32.0-36.0); MEAN CORPUSCULAR VOLUME 104.9 fL (80.0-94.0); MEAN PLATELET VOLUME 8.5 fL (7.4-11.4); MONOCYTES # (AUTO) 0.6 10^3/uL (0.0-1.0); MONOCYTES % (AUTO) 7.4 %; NEUTROPHILS # (AUTO) 7.3 10^3/uL (1.5-6.6); NEUTROPHILS % (AUTO) 84.5 %; PLT - PLATELET COUNT 189 10^3/uL (130-450); RED BLOOD COUNT 5.13 10^6/uL (4.70-6.10); RED CELL DISTRIBUTION WIDTH 17.3 % (12.0-15.0); WHITE BLOOD COUNT 8.6 x10^3/uL (4.8-10.8)
[2024-04-10 06:22] LABS: CALCIUM 9.5 mg/dL (8.5-10.3); CREATININE 1.3 mg/dL (0.6-1.3); POTASSIUM 4.5 mmol/L (3.5-4.5)
[2024-04-10] MEDS: PRENATAL VITAMIN TABLET PO SCH (07:56)
--- NOTE | 2024-04-10 09:07 | PROVIDER PROGRESS NOTE ---
Subjective Subjective Subjective: Patient is doing well today. He states that the pain in his leg has decreased greatly. The swelling is also improved. He has had no shortness of breath. He states he is able to walk to the bathroom and back using the walker without any shortness of breath. He has had no fevers or chills. Overall, he states that he feels better. Current Medications Current Medications Current Medications: Current Medications Generic Name Dose Route Start Last Admin Trade Name Freq PRN Reason Stop Dose Admin Acetaminophen 650 mg 04/08/24 18:40 04/10/24 07:56 Acetaminophen 325 Mg Tablet PO 650 mg Q4HR PRN Administration Pain 1 to 4, or Fever Albuterol 2.5 mg 04/08/24 18:40 04/10/24 02:38 Albuterol Neb 2.5 Mg/3 Ml INH 2.5 mg Q2HR PRN Administration Wheezing Albuterol/Ipratropium 3 ml 04/08/24 19:00 04/10/24 08:45 Ipratropium/Albuterol 3 Ml Neb INH Not Given RTQ6H SMITH Enoxaparin Sodium 40 mg 04/09/24 09:00 04/10/24 07:59 Enoxaparin 40 Mg/0.4 Ml Syringe SUBQ 40 mg DAILY SMITH Administration Furosemide 20 mg 04/10/24 09:00 Furosemide 20 Mg Tablet PO BIDDIURETIC SMITH Gabapentin 300 mg 04/09/24 10:13 04/10/24 06:38 Gabapentin 300 Mg Capsule PO 300 mg TID SMITH Administration Levothyroxine Sodium 88 mcg 04/09/24 07:00 04/10/24 06:38 Levothyroxine 88 Mcg Tablet PO 88 mcg QDAC SMITH Administration Morphine Sulfate 2 mg 04/09/24 10:13 04/09/24 11:14 Morphine 2 Mg/Ml Carpuject IVP 2 mg Q4HR PRN Administration Severe Pain (Level 7-10) Multi-Ingredient Ointment 1 applic 04/09/24 17:17 04/09/24 21:43 Zinc Oxide 20% Oint 30 Gm Tube TOP 1 applic PRN PRN Administration Skin Care Nicotine 1 patch 04/09/24 10:00 04/10/24 07:59 Nicotine 14 Mg Patch TOP 1 patch DAILY SMITH Administration Wdamt-1-Dzun Ethyl Esters 1 gm 04/10/24 09:00 [place]-3 Acid Ethyl Esters 1 Gm Capsule PO DAILY SMITH Ondansetron HCl 4 mg 04/08/24 18:40 Ondansetron Odt 4 Mg Tablet TL Q6HR PRN Nausea / Vomiting Ondansetron HCl 4 mg 04/08/24 18:40 Ondansetron 4 Mg/2 Ml Vial IVP Q6HR PRN Nausea / Vomiting Oxycodone HCl 5 mg 04/08/24 18:40 04/09/24 08:49 Oxycodone 5 Mg Tablet PO 5 mg Q4HR PRN Administration Pain 5 to 7 Prednisone 40 mg 04/09/24 10:00 04/10/24 07:56 Prednisone 20 Mg Tablet PO 04/13/24 09:59 40 mg DAILYWM SMITH Administration Multivit/Folic Acid/Iron 1 tab 04/10/24 08:00 04/10/24 07:56 Vitamin Tablet PO 1 tab DAILYWM SMITH Administration Sodium Chloride 10 ml 04/08/24 18:40 04/10/24 06:38 Sodium Chloride Flush 0.9% 10 Ml Syringe IVP 10 ml PRN PRN Administration NEEDED PER PROVIDER ORDERS Sodium Chloride 10 ml 04/08/24 18:40 04/10/24 00:37 Sodium Chloride Flush 0.9% 10 Ml Syringe IVP 10 ml 0100,0900,1700 SMITH Administration Trimethoprim/Sulfamethoxazole 2 tab 04/09/24 11:00 04/10/24 07:59 Sulfameth/Trimeth Ds 800/160 Mg Tablet PO 2 tab BID SMITH Administration Objective Vital Signs/Intake & Output Reviewed Vital Signs: Yes Vital Signs: Vital Signs x48h Pulse Resp O2 Flow Rate 04/10/24 02:38 4 04/10/24 02:38 60 20 4 Intake & Output: Intake & Output 04/08/24 04/09/24 04/10/24 04/11/24 05:59 05:59 05:59 05:59 Intake Total 300 / 300 2494 / 2494 480 / 480 Output Total 1470 / 1470 Balance -1170 / -1170 2494 / 2494 480 / 480 Weight (kg) 109 kg 112 kg Objective General Appearance: positive No acute distress and Alert; negative Anxious Eyes Bilateral: positive Normal inspection, PERRL and EOMI ENT: positive ENT inspection nml, Pharynx nml and No signs of dehydration Neck: positive Nml inspection, Thyroid nml and No JVD Respiratory: positive Chest non-tender, No respiratory distress and Breath sounds nml; negative Rales or Rhonchi Cardiovascular: positive Regular rate & rhythm, No murmur and No gallop Abdomen: positive Non-tender, No distention and Other (some pitting edema 1+ noted in lower abdominal wall ); negative Rebound, Hepatomegaly, Splenomegaly or Mass Back: positive Nml inspection; negative CVA tenderness (R) or CVA tenderness (L) Skin: positive Color nml and Skin rash (bilateral lower extremity erythema; trace pitting edema noted) Extremities: positive Full ROM, Pedal edema (improved to trace edema) and Other (tenderness to palpation in bilateral lower extremities ) Neurologic/Psychiatric: positive Oriented x3 and Motor nml Lab Results 04/10/24 05:51 04/10/24 05:51 Other Labs: Lab Results x24hrs 04/10/24 04/09/24 Range/Units 05:51 09:04 WBC 8.6 (4.8-10.8) x10^3/uL RBC 5.13 (4.70-6.10) 10^6/uL Hgb 16.2 (14.0-18.0) g/dL Hct 53.8 H (42.0-52.0) % MCV 104.9 H (80.0-94.0) fL MCH 31.6 H (27.0-31.0) pg MCHC 30.1 L (32.0-36.0) g/dL RDW 17.3 H (12.0-15.0) % Plt Count 189 (130-450) 10^3/uL MPV 8.5 (7.4-11.4) fL Neut # (Auto) 7.3 H (1.5-6.6) 10^3/uL Lymph # (Auto) 0.5 L (1.5-3.5) 10^3/uL [place] # (Auto) 0.6 (0.0-1.0) 10^3/uL Eos # (Auto) 0.0 (0.0-0.7) 10^3/uL Baso # (Auto) 0.0 (0.0-0.1) 10^3/uL Absolute Nucleated RBC 0.00 x10^3/uL Nucleated RBC % 0.0 /100WBC Sodium 135 (135-145) mmol/L Potassium 4.5 (3.5-4.5) mmol/L Chloride 94 L (101-111) mmol/L Carbon Dioxide 38 H (21-32) mmol/L Anion Gap 3.0 L (6-13) BUN 34 H (6-20) mg/dL Creatinine 1.3 (0.6-1.3) mg/dL Estimated GFR (MDRD) 56 L (>89) Glucose 139 H (74-104) mg/dL Calcium 9.5 (8.5-10.3) mg/dL B-Natriuretic Peptide 514 H 376 H (5-100) pg/mL Vitamin B12 1265 H (180-914) pg/mL Folate 42.3 (5.90 - >24.8) ng/mL TSH 2.68 (0.34-5.60) uIU/mL Assessment/Plan Problem List (1) Respiratory failure: Impression: Patient was 77% on room air on admission. He does not use supplemental oxygen at home. Does have history of COPD and HFpEF. Oxygen weaned down from 6 L to 4L. Mild expiratory wheezing. Completed 3 doses of IV Solu-Medrol. Will continue oral prednisone 40 mg for 4 more days. No cough, no sputum production. Will hold off on azithromycin. Continue DuoNebs every 4 hours as needed. Chest x-ray notes cardiomegaly, some infiltrates. Received IV Lasix, 20 mg twice daily today, will transition to oral today. Continue strict ins and outs, low-salt diet, fluid restriction. Repeat ECHO with no apparent changes from last ECHO. Will continue daily weights as well. Qualifiers: Chronicity: acute Respiratory failure complication: hypoxia Qualified Code(s): J96.01 - Acute respiratory failure with hypoxia (2) (HFpEF) heart failure with preserved ejection fraction: Impression: IV Lasix 20 mg twice a day switched to oral Lasix twice daily. Continue daily weights, sodium restriction, fluid restriction. Qualifiers: Heart failure chronicity: acute on chronic Qualified Code(s): I50.33 - Acute on chronic diastolic (congestive) heart failure (3) COPD (chronic obstructive pulmonary disease): Impression: Patient recently was started on inhalers in the outpatient setting. Needs PFTs, sleep study done in outpatient setting. Continues to smoke tobacco daily. Nicotine patch ordered. Continue to wean oxygen as tolerated. Continue DuoNebs every 6 hours. Qualifiers: COPD type: emphysema Emphysema type: unspecified Qualified Code(s): J 43.9 - Emphysema, unspecified (4) Venous stasis dermatitis: Impression: Patient with longstanding and extensive venous stasis dermatitis noted in bilateral lower extremities. He wraps them himself, changes wrapping every few days. Has not seen any wound care in a few years. Legs unwrapped - some erythema, drainage noted with bleeding but no purulence. Exquisitely tender to even light touch. Will complete 7 day course of Bactrim for possible superimposed cellulitis on top of venous stasis. Patient describes a burning pain with numbness. Will trial gabapentin. Will increase pain regimen to include IV morphine for severe pain. Continue Tylenol, Motrin, oxycodone for pain. (5) Macrocytosis without anemia: Impression: B12, folate, TSH ordered, all within normal limits. Has former history of chronic alcohol use; this is likely due to bone marrow suppression in setting of this. (6) Pituitary tumor: Impression: Enlarged thyroid also found on evaluation. Has declined surgical intervention, and has not seen endocrinology for evaluation. Continue his home Synthroid 88 mcg a day. (7) Hypothyroid: Impression: Continue his home Synthroid 88 mcg a day. Qualifiers: Hypothyroidism type: unspecified Qualified Code(s): E03.9 - Hypothyroidism, unspecified
[2024-04-10] MEDS: OMEGA-3 ACID ETHYL ESTERS 1 GM CAPSULE PO SCH (09:28)
[2024-04-10] MEDS: FUROSEMIDE 20 MG TABLET PO SCH (09:28)
[2024-04-11 05:04] LABS: BASOPHILS % (AUTO) 0.2 %; EOSINOPHILS # (AUTO) 0.2 10^3/uL (0.0-0.7); HCT - HEMATOCRIT 50.2 % (42.0-52.0); HGB - HEMOGLOBIN 15.4 g/dL (14.0-18.0); LYMPHOCYTES # (AUTO) 1.1 10^3/uL (1.5-3.5); LYMPHOCYTES % (AUTO) 13.2 %; MEAN CORPUSCULAR HGB CONC 30.7 g/dL (32.0-36.0); MEAN CORPUSCULAR VOLUME 104.4 fL (80.0-94.0); MEAN PLATELET VOLUME 8.4 fL (7.4-11.4); MONOCYTES # (AUTO) 0.7 10^3/uL (0.0-1.0); MONOCYTES % (AUTO) 8.3 %; NEUTROPHILS # (AUTO) 6.3 10^3/uL (1.5-6.6); NEUTROPHILS % (AUTO) 75.3 %; PLT - PLATELET COUNT 171 10^3/uL (130-450); RED BLOOD COUNT 4.81 10^6/uL (4.70-6.10); WHITE BLOOD COUNT 8.4 x10^3/uL (4.8-10.8)
[2024-04-11 05:28] LABS: CALCIUM 9.6 mg/dL (8.5-10.3); CREATININE 1.1 mg/dL (0.6-1.3); POTASSIUM 4.6 mmol/L (3.5-4.5)
[2024-04-11 05:47] LABS: DIFFERENTIAL COMMENT MANUAL=AUTO DIFF; PLATELET ESTIMATE, MANUAL NORMAL (130-450,000) (NORMAL); PLATELET MORPHOLOGY NORMAL APPEARANCE (NORMAL); RBC MORPHOLOGY (MULTIPLE) 1+ MACROCYTOSIS (NORMAL); WBC MORPHOLOGY (MULTIPLE) NORMAL APPEARANCE (NORMAL)
[2024-04-11] MEDS: FUROSEMIDE 20 MG TABLET PO SCH (08:10)
--- NOTE | 2024-04-11 09:17 | PROVIDER PROGRESS NOTE ---
Subjective Subjective Subjective: Patient is doing well today. He states that the pain in his leg has decreased greatly. The swelling is also improved. He has had no shortness of breath. He states he is able to walk to the bathroom and back using the walker without any shortness of breath. He has had no fevers or chills. Current Medications Current Medications Current Medications: Current Medications Generic Name Dose Route Start Last Admin Trade Name Freq PRN Reason Stop Dose Admin Acetaminophen 650 mg 04/08/24 18:40 04/10/24 07:56 Acetaminophen 325 Mg Tablet PO 650 mg Q4HR PRN Administration Pain 1 to 4, or Fever Albuterol 2.5 mg 04/08/24 18:40 04/10/24 02:38 Albuterol Neb 2.5 Mg/3 Ml INH 2.5 mg Q2HR PRN Administration Wheezing Albuterol/Ipratropium 3 ml 04/08/24 19:00 04/11/24 08:43 Ipratropium/Albuterol 3 Ml Neb INH Not Given RTQ6H SMITH Enoxaparin Sodium 40 mg 04/09/24 09:00 04/11/24 08:10 Enoxaparin 40 Mg/0.4 Ml Syringe SUBQ Not Given DAILY SMITH Furosemide 20 mg 04/11/24 09:00 04/11/24 08:10 Furosemide 20 Mg Tablet PO 20 mg DAILY SMITH Administration Gabapentin 300 mg 04/09/24 10:13 04/11/24 06:24 Gabapentin 300 Mg Capsule PO 300 mg TID SMITH Administration Levothyroxine Sodium 88 mcg 04/09/24 07:00 04/11/24 06:24 Levothyroxine 88 Mcg Tablet PO 88 mcg QDAC SMITH Administration Morphine Sulfate 2 mg 04/09/24 10:13 04/09/24 11:14 Morphine 2 Mg/Ml Carpuject IVP 2 mg Q4HR PRN Administration Severe Pain (Level 7-10) Multi-Ingredient Ointment 1 applic 04/09/24 17:17 04/09/24 21:43 Zinc Oxide 20% Oint 30 Gm Tube TOP 1 applic PRN PRN Administration Skin Care Nicotine 1 patch 04/09/24 10:00 04/11/24 08:10 Nicotine 14 Mg Patch TOP 1 patch DAILY SMITH Administration [id number] Ethyl Esters 1 gm 04/10/24 09:00 04/11/24 08:10 [place]-3 Acid Ethyl Esters 1 Gm Capsule PO 1 gm DAILY SMITH Administration Ondansetron HCl 4 mg 04/08/24 18:40 Ondansetron Odt 4 Mg Tablet TL Q6HR PRN Nausea / Vomiting Ondansetron HCl 4 mg 04/08/24 18:40 Ondansetron 4 Mg/2 Ml Vial IVP Q6HR PRN Nausea / Vomiting Oxycodone HCl 5 mg 04/08/24 18:40 04/09/24 08:49 Oxycodone 5 Mg Tablet PO 5 mg Q4HR PRN Administration Pain 5 to 7 Prednisone 40 mg 04/09/24 10:00 04/11/24 08:10 Prednisone 20 Mg Tablet PO 04/13/24 09:59 40 mg DAILYWM SMITH Administration Multivit/Folic Acid/Iron 1 tab 04/10/24 08:00 04/11/24 08:10 Vitamin Tablet PO 1 tab DAILYWM SMITH Administration Sodium Chloride 10 ml 04/08/24 18:40 04/10/24 06:38 Sodium Chloride Flush 0.9% 10 Ml Syringe IVP 10 ml PRN PRN Administration NEEDED PER PROVIDER ORDERS Sodium Chloride 10 ml 04/08/24 18:40 04/11/24 08:15 Sodium Chloride Flush 0.9% 10 Ml Syringe IVP 10 ml 0100,0900,1700 SMITH Administration Trimethoprim/Sulfamethoxazole 2 tab 04/09/24 11:00 04/11/24 08:10 Sulfameth/Trimeth Ds 800/160 Mg Tablet PO 2 tab BID SMITH Administration Objective Vital Signs/Intake & Output Reviewed Vital Signs: Yes Vital Signs: Vital Signs x48h Pulse Resp Pulse Ox O2 Flow Rate 04/11/24 07:02 80 20 4 04/11/24 03:01 91 L 4 Intake & Output: Intake & Output 04/09/24 04/10/24 04/11/24 04/12/24 05:59 05:59 05:59 05:59 Intake Total 300 / 300 2494 / 2494 2647 / 2647 Output Total 1470 / 1470 Balance -1170 / -1170 2494 / 2494 2647 / 2647 Weight (kg) 109 kg 112 kg 112 kg Objective General Appearance: positive No acute distress and Alert; negative Anxious Eyes Bilateral: positive Normal inspection, PERRL and EOMI ENT: positive ENT inspection nml, Pharynx nml and No signs of dehydration Neck: positive Nml inspection, Thyroid nml and No JVD Respiratory: positive Chest non-tender, No respiratory distress and Breath sounds nml; negative Rales or Rhonchi Cardiovascular: positive Regular rate & rhythm, No murmur and No gallop Abdomen: positive Non-tender, No distention and Other (some pitting edema 1+ noted in lower abdominal wall ); negative Rebound, Hepatomegaly, Splenomegaly or Mass Back: positive Nml inspection; negative CVA tenderness (R) or CVA tenderness (L) Skin: positive Color nml and Skin rash (bilateral lower extremity erythema; trace pitting edema noted) Extremities: positive Full ROM, Pedal edema (improved to trace edema) and Other (tenderness to palpation in bilateral lower extremities ) Neurologic/Psychiatric: positive Oriented x3 and Motor nml Lab Results 04/11/24 04:35 04/11/24 04:45 Other Labs: Lab Results x24hrs 04/11/24 04/11/24 Range/Units 04:45 04:35 WBC 8.4 (4.8-10.8) x10^3/uL RBC 4.81 (4.70-6.10) 10^6/uL Hgb 15.4 (14.0-18.0) g/dL Hct 50.2 (42.0-52.0) % MCV 104.4 H (80.0-94.0) fL MCH 32.0 H (27.0-31.0) pg MCHC 30.7 L (32.0-36.0) g/dL RDW 17.0 H (12.0-15.0) % Plt Count 171 (130-450) 10^3/uL MPV 8.4 (7.4-11.4) fL Neut # (Auto) 6.3 (1.5-6.6) 10^3/uL Lymph # (Auto) 1.1 L (1.5-3.5) 10^3/uL [place] # (Auto) 0.7 (0.0-1.0) 10^3/uL Eos # (Auto) 0.2 (0.0-0.7) 10^3/uL Baso # (Auto) 0.0 (0.0-0.1) 10^3/uL Absolute Nucleated RBC 0.00 x10^3/uL Band Neuts % (Manual) Not Reportable Abnorm Lymph % (Manual) Not Reportable Nucleated RBC % 0.0 /100WBC Neutrophils # (Manual) Not Reportable Lymphocytes # (Manual) Not Reportable Monocytes # (Manual) Not Reportable Eosinophils # (Manual) Not Reportable Basophils # (Manual) Not Reportable Differential Comment MANUAL=AUTO DIFF WBC Morphology NORMAL APPEARANCE (NORMAL) Platelet Estimate NORMAL (130-450,000) (NORMAL) Platelet Morphology NORMAL APPEARANCE (NORMAL) RBC Morph Micro Appear 1+ MACROCYTOSIS (NORMAL) Sodium 135 (135-145) mmol/L Potassium 4.6 H (3.5-4.5) mmol/L Chloride 91 L (101-111) mmol/L Carbon Dioxide 42 H* (21-32) mmol/L Anion Gap 2.0 L (6-13) BUN 37 H (6-20) mg/dL Creatinine 1.1 (0.6-1.3) mg/dL Estimated GFR (MDRD) 68 L (>89) Glucose 103 (74-104) mg/dL Calcium 9.6 (8.5-10.3) mg/dL Assessment/Plan Problem List (1) Respiratory failure: Impression: Patient was 77% on room air on admission. He does not use supplemental oxygen at home. Does have history of COPD and HFpEF. Oxygen weaned down from 6 L to 4L to 2L. Will trial off and do ambulatory pulse oximetry, when safely able. Completed 3 doses of IV Solu-Medrol. Will continue oral prednisone 40 mg for 5 days. No cough, no sputum production. Will hold off on azithromycin. Continue DuoNebs every 4 hours as needed. Chest x-ray notes cardiomegaly, some infiltrates. Received IV Lasix, 20 mg twice daily today, transitioned to oral. Continue strict ins and outs, low-salt diet, fluid restriction. Repeat ECHO with no apparent changes from last ECHO. Will continue daily weights as well. Qualifiers: Chronicity: acute Respiratory failure complication: hypoxia Qualified Code(s): J96.01 - Acute respiratory failure with hypoxia (2) (HFpEF) heart failure with preserved ejection fraction: Impression: IV Lasix 20 mg twice a day switched to oral Lasix. Continue daily weights, sodium restriction, fluid restriction. Qualifiers: Heart failure chronicity: acute on chronic Qualified Code(s): I50.33 - Acute on chronic diastolic (congestive) heart failure (3) COPD (chronic obstructive pulmonary disease): Impression: Patient recently was started on inhalers in the outpatient setting. Needs PFTs, sleep study done in outpatient setting. Continues to smoke tobacco daily. Nicotine patch ordered. Continue to wean oxygen as tolerated. Continue DuoNebs every 6 hours. Qualifiers: COPD type: emphysema Emphysema type: unspecified Qualified Code(s): J 43.9 - Emphysema, unspecified (4) Venous stasis dermatitis: Impression: Patient with longstanding and extensive venous stasis dermatitis noted in bilateral lower extremities. He wraps them himself, changes wrapping every few days. Has not seen any wound care in a few years. Legs unwrapped - some erythema, drainage noted with bleeding but no purulence. Exquisitely tender to even light touch. Will complete 7 day course of Bactrim for possible superimposed cellulitis on top of venous stasis. Patient describes a burning pain with numbness. Will trial gabapentin. Will increase pain regimen to include IV morphine for severe pain. Continue Tylenol, Motrin, oxycodone for pain. (5) Macrocytosis without anemia: Impression: B12, folate, TSH ordered, all within normal limits. Has former history of chronic alcohol use; this is likely due to bone marrow suppression in setting of this. (6) Pituitary tumor: Impression: Enlarged thyroid also found on evaluation. Has declined surgical intervention, and has not seen endocrinology for evaluation. Continue his home Synthroid 88 mcg a day. (7) Hypothyroid: Impression: Continue his home Synthroid 88 mcg a day. Qualifiers: Hypothyroidism type: unspecified Qualified Code(s): E03.9 - Hypothyroidism, unspecified
[2024-04-12 05:00] LABS: BASOPHILS % (AUTO) 0.3 %; EOSINOPHILS % (AUTO) 0.1 %; HGB - HEMOGLOBIN 16.8 g/dL (14.0-18.0); LYMPHOCYTES # (AUTO) 1.5 10^3/uL (1.5-3.5); LYMPHOCYTES % (AUTO) 18.5 %; MEAN CORPUSCULAR HEMOGLOBIN 31.3 pg (27.0-31.0); MEAN CORPUSCULAR VOLUME 104.5 fL (80.0-94.0); MEAN PLATELET VOLUME 8.7 fL (7.4-11.4); MONOCYTES # (AUTO) 0.7 10^3/uL (0.0-1.0); MONOCYTES % (AUTO) 8.5 %; NEUTROPHILS # (AUTO) 5.6 10^3/uL (1.5-6.6); NEUTROPHILS % (AUTO) 71.8 %; PLT - PLATELET COUNT 162 10^3/uL (130-450); RED BLOOD COUNT 5.36 10^6/uL (4.70-6.10); RED CELL DISTRIBUTION WIDTH 17.1 % (12.0-15.0); WHITE BLOOD COUNT 7.8 x10^3/uL (4.8-10.8)
[2024-04-12 05:35] LABS: CALCIUM 10.1 mg/dL (8.5-10.3); CREATININE 1.2 mg/dL (0.6-1.3); POTASSIUM 4.8 mmol/L (3.5-4.5)
[2024-04-12] MEDS: INSULIN REGULAR, HUMAN 300 UNIT/3 ML PEN IVP ONE (09:37)
[2024-04-12] MEDS: SODIUM ZIRCONIUM CYCLOSILICATE 5 GM PACKET PO ONE (09:37)
[2024-04-12] MEDS: DEXTROSE 50% ABBOJECT 25 GM/50 ML SYRINGE IVP ONE (09:37)
[2024-04-12] MEDS: polyethylene glycoL 3350 17 GM PACKET PO SCH (11:56)
[2024-04-12 12:41] LABS: CALCIUM 10.2 mg/dL (8.5-10.3); CREATININE 1.1 mg/dL (0.6-1.3); POTASSIUM 4.5 mmol/L (3.5-4.5)
--- NOTE | 2024-04-12 14:32 | PROVIDER PROGRESS NOTE ---
Subjective Subjective Subjective: Patient is doing well today. He states that the pain in his leg comes and goes. The swelling is also improved. He has had no shortness of breath. He states he is able to walk to the bathroom and back using the walker without any shortness of breath. He has had no fevers or chills. Current Medications Current Medications Current Medications: Current Medications Generic Name Dose Route Start Last Admin Trade Name Freq PRN Reason Stop Dose Admin Acetaminophen 650 mg 04/08/24 18:40 04/10/24 07:56 Acetaminophen 325 Mg Tablet PO 650 mg Q4HR PRN Administration Pain 1 to 4, or Fever Albuterol 2.5 mg 04/08/24 18:40 04/10/24 02:38 Albuterol Neb 2.5 Mg/3 Ml INH 2.5 mg Q2HR PRN Administration Wheezing Albuterol/Ipratropium 3 ml 04/08/24 19:00 04/12/24 12:40 Ipratropium/Albuterol 3 Ml Neb INH 3 ml RTQ6H SMITH Administration Enoxaparin Sodium 40 mg 04/09/24 09:00 04/12/24 08:32 Enoxaparin 40 Mg/0.4 Ml Syringe SUBQ 40 mg DAILY SMITH Administration Gabapentin 300 mg 04/09/24 10:13 04/12/24 06:00 Gabapentin 300 Mg Capsule PO 300 mg TID SMITH Administration Levothyroxine Sodium 88 mcg 04/09/24 07:00 04/12/24 06:00 Levothyroxine 88 Mcg Tablet PO 88 mcg QDAC SMITH Administration Morphine Sulfate 2 mg 04/09/24 10:13 04/09/24 11:14 Morphine 2 Mg/Ml Carpuject IVP 2 mg Q4HR PRN Administration Severe Pain (Level 7-10) Multi-Ingredient Ointment 1 applic 04/09/24 17:17 04/09/24 21:43 Zinc Oxide 20% Oint 30 Gm Tube TOP 1 applic PRN PRN Administration Skin Care Nicotine 1 patch 04/09/24 10:00 04/12/24 08:32 Nicotine 14 Mg Patch TOP 1 patch DAILY SMITH Administration [id number] Ethyl Esters 1 gm 04/10/24 09:00 04/12/24 08:32 [place]-3 Acid Ethyl Esters 1 Gm Capsule PO 1 gm DAILY SMITH Administration Ondansetron HCl 4 mg 04/08/24 18:40 Ondansetron Odt 4 Mg Tablet TL Q6HR PRN Nausea / Vomiting Ondansetron HCl 4 mg 04/08/24 18:40 Ondansetron 4 Mg/2 Ml Vial IVP Q6HR PRN Nausea / Vomiting Oxycodone HCl 5 mg 04/08/24 18:40 04/09/24 08:49 Oxycodone 5 Mg Tablet PO 5 mg Q4HR PRN Administration Pain 5 to 7 Polyethylene Glycol 17 gm 04/12/24 12:00 04/12/24 11:56 Polyethylene Glycol 3350 17 Gm Packet PO 17 gm DAILY SMITH Administration Prednisone 40 mg 04/09/24 10:00 04/12/24 08:32 Prednisone 20 Mg Tablet PO 04/13/24 09:59 40 mg DAILYWM SMITH Administration Multivit/Folic Acid/Iron 1 tab 04/10/24 08:00 04/12/24 08:33 Vitamin Tablet PO 1 tab DAILYWM SMITH Administration Sodium Chloride 10 ml 04/08/24 18:40 04/10/24 06:38 Sodium Chloride Flush 0.9% 10 Ml Syringe IVP 10 ml PRN PRN Administration NEEDED PER PROVIDER ORDERS Sodium Chloride 10 ml 04/08/24 18:40 04/12/24 08:33 Sodium Chloride Flush 0.9% 10 Ml Syringe IVP 10 ml 0100,0900,1700 SMITH Administration Objective Vital Signs/Intake & Output Reviewed Vital Signs: Yes Vital Signs: Vital Signs x48h Temp Pulse Pulse Resp BP Pulse Ox O2 Flow Rate 04/12/24 12:41 68 20 4 04/12/24 11:31 97.9 F 60 20 98/58 L 90 L 4 04/12/24 08:47 72 04/12/24 07:06 90 L 1 04/12/24 07:05 4 04/12/24 07:03 48 L 20 1 Intake & Output: Intake & Output 04/10/24 04/11/24 04/12/24 04/13/24 05:59 05:59 05:59 05:59 Intake Total 2494 / 2494 2647 / 2647 2840 / 2840 1480 / 1480 Balance 2494 / 2494 2647 / 2647 2840 / 2840 1480 / 1480 Weight (kg) 112 kg 112 kg 112 kg Objective General Appearance: positive No acute distress and Alert; negative Anxious Eyes Bilateral: positive Normal inspection, PERRL and EOMI ENT: positive ENT inspection nml, Pharynx nml and No signs of dehydration Neck: positive Nml inspection, Thyroid nml and No JVD Respiratory: positive Chest non-tender, No respiratory distress and Breath sounds nml; negative Rales or Rhonchi Cardiovascular: positive Regular rate & rhythm, No murmur and No gallop Abdomen: positive Non-tender, No distention and Other (some pitting edema 1+ noted in lower abdominal wall ); negative Rebound, Hepatomegaly, Splenomegaly or Mass Back: positive Nml inspection; negative CVA tenderness (R) or CVA tenderness (L) Skin: positive Color nml and Skin rash (bilateral lower extremity erythema; trace pitting edema noted) Extremities: positive Full ROM, Pedal edema (improved to trace edema) and Other (tenderness to palpation in bilateral lower extremities ) Neurologic/Psychiatric: positive Oriented x3 and Motor nml Lab Results 04/12/24 04:40 04/12/24 12:05 Other Labs: Lab Results x24hrs 04/12/24 04/12/24 Range/Units 12:05 04:40 WBC 7.8 (4.8-10.8) x10^3/uL RBC 5.36 (4.70-6.10) 10^6/uL Hgb 16.8 (14.0-18.0) g/dL Hct 56.0 H (42.0-52.0) % MCV 104.5 H (80.0-94.0) fL MCH 31.3 H (27.0-31.0) pg MCHC 30.0 L (32.0-36.0) g/dL RDW 17.1 H (12.0-15.0) % Plt Count 162 (130-450) 10^3/uL MPV 8.7 (7.4-11.4) fL Neut # (Auto) 5.6 (1.5-6.6) 10^3/uL Lymph # (Auto) 1.5 (1.5-3.5) 10^3/uL [place] # (Auto) 0.7 (0.0-1.0) 10^3/uL Eos # (Auto) 0.0 (0.0-0.7) 10^3/uL Baso # (Auto) 0.0 (0.0-0.1) 10^3/uL Absolute Nucleated RBC 0.00 x10^3/uL Nucleated RBC % 0.0 /100WBC Sodium 131 L 136 (135-145) mmol/L Potassium 4.5 4.8 H (3.5-4.5) mmol/L Chloride 86 L 88 L (101-111) mmol/L Carbon Dioxide 44 H* 45 H* (21-32) mmol/L Anion Gap 1.0 L 3.0 L (6-13) BUN 35 H 35 H (6-20) mg/dL Creatinine 1.1 1.2 (0.6-1.3) mg/dL Estimated GFR (MDRD) 68 L 61 L (>89) Glucose 94 94 (74-104) mg/dL Calcium 10.2 10.1 (8.5-10.3) mg/dL B-Natriuretic Peptide 292 H (5-100) pg/mL Assessment/Plan Problem List (1) Respiratory failure: Impression: Patient was 77% on room air on admission. He does not use supplemental oxygen at home. Does have history of COPD and HFpEF. Oxygen weaned down from 6 L to 4L to 2L. Will trial off and do ambulatory pulse oximetry, when safely able. Completed 3 doses of IV Solu-Medrol. Will continue oral prednisone 40 mg for 5 days. No cough, no sputum production. Will hold off on azithromycin. Continue DuoNebs every 4 hours as needed. Chest x-ray notes cardiomegaly, some infiltrates. Received IV Lasix, 20 mg twice daily today, transitioned to oral. Will hold at this time. Continue strict ins and outs, low-salt diet, fluid restriction. Repeat ECHO with no apparent changes from last ECHO. Will continue daily weights as well. Qualifiers: Chronicity: acute Respiratory failure complication: hypoxia Qualified Code(s): J96.01 - Acute respiratory failure with hypoxia (2) (HFpEF) heart failure with preserved ejection fraction: Impression: IV Lasix 20 mg twice a day switched to oral Lasix yesterday. Will hold off on further diuresis at this time. Continue daily weights, sodium restriction, fluid restriction. Qualifiers: Heart failure chronicity: acute on chronic Qualified Code(s): I50.33 - Acute on chronic diastolic (congestive) heart failure (3) Metabolic alkalosis: Impression: Likely due to overdiuresis. Will hold Lasix today and recheck in AM. (4) Hyperkalemia: Impression: Likely due to Bactrim. One time hyperkalemia cocktail given (insulin, D50, Lokelma); repeat normal. Bactrim held. Will recheck in AM. (5) COPD (chronic obstructive pulmonary disease): Impression: Patient recently was started on inhalers in the outpatient setting. Needs PFTs, sleep study done in outpatient setting. Continues to smoke tobacco daily. Nicotine patch ordered. Continue to wean oxygen as tolerated. Continue DuoNebs every 6 hours. Qualifiers: COPD type: emphysema Emphysema type: unspecified Qualified Code(s): J 43.9 - Emphysema, unspecified (6) Venous stasis dermatitis: Impression: Patient with longstanding and extensive venous stasis dermatitis noted in bilateral lower extremities. He wraps them himself, changes wrapping every few days. Has not seen any wound care in a few years. Legs unwrapped - some erythema, drainage noted with bleeding but no purulence. Exquisitely tender to even light touch. Bactrim held today due to hyperkalemia. Patient describes a burning pain with numbness. Will trial gabapentin. Will increase pain regimen to include IV morphine for severe pain. Continue Tylenol, Motrin, oxycodone for pain. (7) Macrocytosis without anemia: Impression: B12, folate, TSH ordered, all within normal limits. Has former history of chronic alcohol use; this is likely due to bone marrow suppression in setting of this. (8) Pituitary tumor: Impression: Enlarged thyroid also found on evaluation. Has declined surgical intervention, and has not seen endocrinology for evaluation. Continue his home Synthroid 88 mcg a day. (9) Hypothyroid: Impression: Continue his home Synthroid 88 mcg a day. Qualifiers: Hypothyroidism type: unspecified Qualified Code(s): E03.9 - Hypothyroidism, unspecified
[2024-04-13] MEDS: guaiFENesin 600 MG TABLET PO SCH (01:30)
[2024-04-13 05:58] LABS: BASOPHILS % (AUTO) 0.2 %; EOSINOPHILS % (AUTO) 0.5 %; HCT - HEMATOCRIT 49.7 % (42.0-52.0); HGB - HEMOGLOBIN 15.1 g/dL (14.0-18.0); LYMPHOCYTES # (AUTO) 1.2 10^3/uL (1.5-3.5); LYMPHOCYTES % (AUTO) 19.9 %; MEAN CORPUSCULAR HEMOGLOBIN 31.4 pg (27.0-31.0); MEAN CORPUSCULAR HGB CONC 30.4 g/dL (32.0-36.0); MEAN CORPUSCULAR VOLUME 103.3 fL (80.0-94.0); MEAN PLATELET VOLUME 8.9 fL (7.4-11.4); MONOCYTES # (AUTO) 0.8 10^3/uL (0.0-1.0); MONOCYTES % (AUTO) 12.4 %; NEUTROPHILS # (AUTO) 4.1 10^3/uL (1.5-6.6); NEUTROPHILS % (AUTO) 65.9 %; PLT - PLATELET COUNT 159 10^3/uL (130-450); RED BLOOD COUNT 4.81 10^6/uL (4.70-6.10); RED CELL DISTRIBUTION WIDTH 16.6 % (12.0-15.0); WHITE BLOOD COUNT 6.2 x10^3/uL (4.8-10.8)
[2024-04-13 06:31] LABS: CALCIUM 9.8 mg/dL (8.5-10.3); CREATININE 1.1 mg/dL (0.6-1.3); POTASSIUM 5.1 mmol/L (3.5-4.5)
[2024-04-13] MEDS: DEXTROSE 50% ABBOJECT 25 GM/50 ML SYRINGE IVP ONE (07:59)
[2024-04-13] MEDS: SODIUM ZIRCONIUM CYCLOSILICATE 5 GM PACKET PO ONE (08:00)
[2024-04-13] MEDS: INSULIN REGULAR, HUMAN 300 UNIT/3 ML PEN IVP ONE (08:02)
[2024-04-13 12:32] LABS: CARBON DIOXIDE - CO2 > 45 mmol/L (21-32)
[2024-04-13 12:43] LABS: BUN - BLOOD UREA NITROGEN 34 mg/dL (6-20); CALCIUM 10.3 mg/dL (8.5-10.3); CHLORIDE 85 mmol/L (101-111); GFR - MDRD 76 (>89); GLUCOSE 91 mg/dL (74-104); POTASSIUM 4.6 mmol/L (3.5-4.5); SODIUM 137 mmol/L (135-145)
--- NOTE | 2024-04-13 13:22 | PROVIDER PROGRESS NOTE ---
Subjective Subjective Subjective: Patient is doing well today. He states that the pain in his leg comes and goes. The swelling is also improved. He has had no shortness of breath. He states he is able to walk to the bathroom and back using the walker without any shortness of breath. He has had no fevers or chills. He states he is drinking adequate water. He is eating well. He understands that he is going to require oxygen at home. He states that he usually uses his 's oxygen when he really needs it at home. Current Medications Current Medications Current Medications: Current Medications Generic Name Dose Route Start Last Admin Trade Name Freq PRN Reason Stop Dose Admin Acetaminophen 650 mg 04/08/24 18:40 04/13/24 08:01 Acetaminophen 325 Mg Tablet PO 650 mg Q4HR PRN Administration Pain 1 to 4, or Fever Albuterol 2.5 mg 04/08/24 18:40 04/10/24 02:38 Albuterol Neb 2.5 Mg/3 Ml INH 2.5 mg Q2HR PRN Administration Wheezing Albuterol/Ipratropium 3 ml 04/08/24 19:00 04/13/24 11:10 Ipratropium/Albuterol 3 Ml Neb INH 3 ml RTQ6H SMITH Administration Docusate Sodium 250 - 500 mg 04/14/24 12:00 Docusate Sodium 250 Mg Capsule PO DAILY SMITH Enoxaparin Sodium 40 mg 04/09/24 09:00 04/13/24 07:59 Enoxaparin 40 Mg/0.4 Ml Syringe SUBQ 40 mg DAILY SMITH Administration Gabapentin 300 mg 04/09/24 10:13 04/13/24 06:08 Gabapentin 300 Mg Capsule PO 300 mg TID SMITH Administration Guaifenesin 600 mg 04/13/24 01:00 04/13/24 08:00 Guaifenesin 600 Mg Tablet PO 600 mg BID SMITH Administration Levothyroxine Sodium 88 mcg 04/09/24 07:00 04/13/24 06:08 Levothyroxine 88 Mcg Tablet PO 88 mcg QDAC SMITH Administration Morphine Sulfate 2 mg 04/09/24 10:13 04/09/24 11:14 Morphine 2 Mg/Ml Carpuject IVP 2 mg Q4HR PRN Administration Severe Pain (Level 7-10) Multi-Ingredient Ointment 1 applic 04/09/24 17:17 04/09/24 21:43 Zinc Oxide 20% Oint 30 Gm Tube TOP 1 applic PRN PRN Administration Skin Care Nicotine 1 patch 04/09/24 10:00 04/13/24 07:59 Nicotine 14 Mg Patch TOP 1 patch DAILY SMITH Administration [id number] Ethyl Esters 1 gm 04/10/24 09:00 04/13/24 08:01 [place]-3 Acid Ethyl Esters 1 Gm Capsule PO 1 gm DAILY SMITH Administration Ondansetron HCl 4 mg 04/08/24 18:40 Ondansetron Odt 4 Mg Tablet TL Q6HR PRN Nausea / Vomiting Ondansetron HCl 4 mg 04/08/24 18:40 Ondansetron 4 Mg/2 Ml Vial IVP Q6HR PRN Nausea / Vomiting Oxycodone HCl 5 mg 04/08/24 18:40 04/09/24 08:49 Oxycodone 5 Mg Tablet PO 5 mg Q4HR PRN Administration Pain 5 to 7 Polyethylene Glycol 17 gm 04/12/24 12:00 04/13/24 08:00 Polyethylene Glycol 3350 17 Gm Packet PO 17 gm DAILY SMITH Administration Multivit/Folic Acid/Iron 1 tab 04/10/24 08:00 04/13/24 08:01 Vitamin Tablet PO 1 tab DAILYWM SMITH Administration Senna 8.6 - 17.2 mg 04/13/24 12:00 Senna 8.6 Mg Tablet PO DAILY SMITH Sodium Chloride 10 ml 04/08/24 18:40 04/10/24 06:38 Sodium Chloride Flush 0.9% 10 Ml Syringe IVP 10 ml PRN PRN Administration NEEDED PER PROVIDER ORDERS Sodium Chloride 10 ml 04/08/24 18:40 04/13/24 08:01 Sodium Chloride Flush 0.9% 10 Ml Syringe IVP 10 ml 0100,0900,1700 SMITH Administration Objective Vital Signs/Intake & Output Reviewed Vital Signs: Yes Vital Signs: Vital Signs x48h Pulse Resp Pulse Ox O2 Flow Rate 04/13/24 07:11 2 04/13/24 07:11 88 20 04/13/24 06:13 18 96 3 Intake & Output: Intake & Output 04/11/24 04/12/24 04/13/24 04/14/24 05:59 05:59 05:59 05:59 Intake Total 2647 / 2647 2840 / 2840 2420 / 2420 700 / 700 Balance 2647 / 2647 2840 / 2840 2420 / 2420 700 / 700 Weight (kg) 112 kg 112 kg 113 kg Objective General Appearance: positive No acute distress and Alert; negative Anxious Eyes Bilateral: positive Normal inspection, PERRL and EOMI ENT: positive ENT inspection nml, Pharynx nml and No signs of dehydration Neck: positive Nml inspection, Thyroid nml and No JVD Respiratory: positive Chest non-tender, No respiratory distress and Breath sounds nml; negative Rales or Rhonchi Cardiovascular: positive Regular rate & rhythm, No murmur and No gallop Abdomen: positive Non-tender, No distention and Other (some pitting edema 1+ noted in lower abdominal wall ); negative Rebound, Hepatomegaly, Splenomegaly or Mass Back: positive Nml inspection; negative CVA tenderness (R) or CVA tenderness (L) Skin: positive Color nml and Skin rash (bilateral lower extremity erythema; trace pitting edema noted) Extremities: positive Full ROM, Pedal edema (improved to trace edema) and Other (tenderness to palpation in bilateral lower extremities ) Neurologic/Psychiatric: positive Oriented x3 and Motor nml Lab Results 04/13/24 05:39 04/13/24 11:54 Other Labs: Lab Results x24hrs 04/13/24 04/13/24 Range/Units 11:54 05:39 WBC 6.2 (4.8-10.8) x10^3/uL RBC 4.81 (4.70-6.10) 10^6/uL Hgb 15.1 (14.0-18.0) g/dL Hct 49.7 (42.0-52.0) % MCV 103.3 H (80.0-94.0) fL MCH 31.4 H (27.0-31.0) pg MCHC 30.4 L (32.0-36.0) g/dL RDW 16.6 H (12.0-15.0) % Plt Count 159 (130-450) 10^3/uL MPV 8.9 (7.4-11.4) fL Neut # (Auto) 4.1 (1.5-6.6) 10^3/uL Lymph # (Auto) 1.2 L (1.5-3.5) 10^3/uL [place] # (Auto) 0.8 (0.0-1.0) 10^3/uL Eos # (Auto) 0.0 (0.0-0.7) 10^3/uL Baso # (Auto) 0.0 (0.0-0.1) 10^3/uL Absolute Nucleated RBC 0.00 x10^3/uL Nucleated RBC % 0.0 /100WBC Sodium 137 134 L (135-145) mmol/L Potassium 4.6 H 5.1 H (3.5-4.5) mmol/L Chloride 85 L 88 L (101-111) mmol/L Carbon Dioxide > 45 H* 44 H* (21-32) mmol/L Anion Gap TNP 2.0 L (6-13) BUN 34 H 32 H (6-20) mg/dL Creatinine 1.0 1.1 (0.6-1.3) mg/dL Estimated GFR (MDRD) 76 L 68 L (>89) Glucose 91 91 (74-104) mg/dL Calcium 10.3 9.8 (8.5-10.3) mg/dL B-Natriuretic Peptide 416 H (5-100) pg/mL Assessment/Plan Problem List (1) Respiratory failure: Impression: Patient was 77% on room air on admission. He does not use supplemental oxygen at home. Does have history of COPD and HFpEF. Oxygen weaned down from 6 L to 4L to 2L. Will need oxygen on discharge. Completed 3 doses of IV Solu-Medrol. Completed prednisone 40 mg for 5 days. No cough, no sputum production. Will hold off on azithromycin. Continue DuoNebs every 4 hours as needed. Chest x-ray notes cardiomegaly, some infiltrates. Received IV Lasix, 20 mg twice daily today, transitioned to oral. Now held for two days. Continue strict ins and outs, low-salt diet, fluid restriction. Repeat ECHO with no apparent changes from last ECHO. Will continue daily weights as well. Qualifiers: Chronicity: acute Respiratory failure complication: hypoxia Qualified Code(s): J96.01 - Acute respiratory failure with hypoxia (2) Metabolic alkalosis: Impression: Initially attributed to contraction alkalosis in setting of overdiuresis. Oral Lasix has now been held for 2 to 3 days with continued metabolic alkalosis. Will consider IV bolus, patient still has persistent edema so this may worsen that. Continue to monitor off diuretics; recheck bicarb level in the morning. (3) Hyperkalemia: Impression: Initially attributed to Bactrim, stopped two days ago. Half life is about 10 hours, so should be cleared at this time. No other iatrogenic causes noted upon review of medication list. No renal dysfunction noted. Hyperkalemia cocktail given (insulin, D50, Lokelma). Bactrim held. Will recheck in AM. (4) (HFpEF) heart failure with preserved ejection fraction: Impression: IV Lasix 20 mg twice a day switched to oral Lasix, has been off for 2 days now. Will hold off on further diuresis at this time. Continue daily weights, sodium restriction, fluid restriction. Qualifiers: Heart failure chronicity: acute on chronic Qualified Code(s): I50.33 - Acute on chronic diastolic (congestive) heart failure (5) COPD (chronic obstructive pulmonary disease): Impression: Patient recently was started on inhalers in the outpatient setting. Needs PFTs, sleep study done in outpatient setting. Continues to smoke tobacco daily. Nicotine patch ordered. Continue to wean oxygen as tolerated. Continue DuoNebs every 6 hours. Qualifiers: COPD type: emphysema Emphysema type: unspecified Qualified Code(s): J 43.9 - Emphysema, unspecified (6) Venous stasis dermatitis: Impression: Patient with longstanding and extensive venous stasis dermatitis noted in bilateral lower extremities. He wraps them himself, changes wrapping every few days. Has not seen any wound care in a few years. Legs unwrapped - some erythema, drainage noted with bleeding but no purulence. Exquisitely tender to even light touch. Completed course of antibiotics for possible superimposed cellulitis. Patient describes a burning pain with numbness. Will trial gabapentin. Will increase pain regimen to include IV morphine for severe pain. Continue Tylenol, Motrin, oxycodone for pain. (7) Macrocytosis without anemia: Impression: B12, folate, TSH ordered, all within normal limits. Has former history of chronic alcohol use; this is likely due to bone marrow suppression in setting of this. (8) Pituitary tumor: Impression: Enlarged thyroid also found on evaluation. Has declined surgical intervention, and has not seen endocrinology for evaluation. Continue his home Synthroid 88 mcg a day. (9) Hypothyroid: Impression: Continue his home Synthroid 88 mcg a day. Qualifiers: Hypothyroidism type: unspecified Qualified Code(s): E03.9 - Hypothyroidism, unspecified
[2024-04-13] MEDS: SENNA 8.6 MG TABLET PO SCH (14:26)
[2024-04-14 05:54] LABS: HGB - HEMOGLOBIN 15.2 g/dL (14.0-18.0); MEAN CORPUSCULAR HEMOGLOBIN 32.3 pg (27.0-31.0); MEAN CORPUSCULAR VOLUME 104.3 fL (80.0-94.0); RED BLOOD COUNT 4.7 10^6/uL (4.70-6.10); WHITE BLOOD COUNT 6.6 x10^3/uL (4.8-10.8)
[2024-04-14 06:09] LABS: BUN - BLOOD UREA NITROGEN 33 mg/dL (6-20); CALCIUM 9.7 mg/dL (8.5-10.3); CARBON DIOXIDE - CO2 > 45 mmol/L (21-32); CHLORIDE 87 mmol/L (101-111); GFR - MDRD 76 (>89); GLUCOSE 92 mg/dL (74-104); POTASSIUM 4.9 mmol/L (3.5-4.5); SODIUM 134 mmol/L (135-145)
[2024-04-14] MEDS: SODIUM ZIRCONIUM CYCLOSILICATE 5 GM PACKET PO SCH (08:22)
[2024-04-14] MEDS: acetaZOLAMIDE 250 MG TABLET PO SCH (08:22)
--- NOTE | 2024-04-14 10:38 | PROVIDER PROGRESS NOTE ---
Subjective Prog Note Date Prog Note Date: 04/14/24 Subjective Subjective: This is a 63-year-old white male who has a known history with preserved ejection fraction and an admission in August 2023, chronic tobacco abuse resulting in COPD, morbid obesity. He presented to the emergency room in August with the same problems he has today. He had stopped taking his Lasix for a month and it become significantly edematous. His skin was also getting red and hot to touch. And it was extending into his abdomen. He was felt to have significant stasis dermatitis of his lower extremities with an KAT that was normal recently. Without admission TSH was elevated at 13 and he was started on levothyroxine. He was instructed to go get an outpatient sleep study, a wound care referral, and pulmonary function studies. He did get wound care referral with our clinic. But he did not get an outpatient sleep study or a pulmonary function study. Echocardiogram had left ventricular wall thickness that was normal with an ejection fraction of 65 to 70%. The right ventricle was normal in size and function. RVSP at rest was 48 mmHg with mild tricuspid regurg. The ascending aorta was mildly dilated at 4.2 cm. He had a severe increase in left atrial volume index and moderate right atrial enlargement. He was seen in follow-up after the August. September visit. At that time his edema had improved. He gone to the wound clinic and extensive debridement and cleaning was done and his legs were looking better, he was feeling better. Since that time he has not followed up with our local primary care provider. When I ask him who he has been seeing he is vague. He cannot quite remember. He last called the clinic January 29 for swelling of the elbow. He was complaining of it being the size of water balloon and had been there for several months and not getting better. He was referred to the walk-in clinic. But I am not seeing any walk-in clinic visit Weight in the office in September was 275 lb . The lowest he has been is 265 pounds in January 2023. Today's weight, according to the ER chart, is 259.3 pounds. He tells me that he is compliant with his medications and diet. He is eating a low-salt diet. He takes his pills what he supposed to. He first left the hospital he actually felt good. And from September until about December or January he felt stable. And in spite of that the leg edema has been gradually creeping back on. His legs are increasingly painful. He is annoyed and tells me that this is the whole reason he is here. That this whole "congestive heart failure with edema is crap". He could care less about me diuresing him and he wants me to give him pain medicines. And he interrupts me by telling me that "and that oxycodone does not work". Over the last 2 months his bilateral lower extremity keeps on getting worse. Now into his belly. And he feels like he has been more short of breath over the last few days. Denies fever, chills, change in medication. No one else is sick around him. He has orthopnea. He has limited mobility because of the edema and pain in his legs. He says that he is cut back on his smoking and he only smokes half a pack a day. In the emergency room temperature was 36.1. Heart rate 64. Respirations 21. 92% saturated on 3 L. When he is off oxygen and walking he desaturates to 77% on room air. Blood pressure is 127/74. He is able to get up on the gurney without severe dyspnea. He is able to speak in a normal tone of voice. But now he is sitting upright on the gurney, leaning forward on the bedside table and a cane. Complaining bitterly of pain.The ER doctor found to have slightly labored respiration, and diminished breath sounds at the bases but no rhonchi or crackles. BUN is 21, creatinine is 0.9. His carbon dioxide is 36. When he was here in August he was 40. Chloride is 99. Potassium normal at 4.2. BNP is 246. He seems to be in that range consistently since August. In August he was 294. CBC has normal white cell count. Normal hemoglobin. Hematocrit slightly elevated at 52.3. MCV is 104. Platelets 246. His chest x-ray has mild CHF exacerbation versus sequela of aspiration. 04/14/2024:Patient is doing well.Currently he is on Oxygen via nasal cannulae. This is new for him. Patient would like to go home. He has no complaints about his lower extremities. Which are wrapped. Current Medications Current Medications Current Medications: Current Medications Generic Name Dose Route Start Last Admin Trade Name Freq PRN Reason Stop Dose Admin Acetaminophen 650 mg 04/08/24 18:40 04/13/24 08:01 Acetaminophen 325 Mg Tablet PO 650 mg Q4HR PRN Administration Pain 1 to 4, or Fever Acetazolamide 250 mg 04/14/24 09:00 04/14/24 08:22 Acetazolamide 250 Mg Tablet PO 250 mg BID SMITH Administration Albuterol 2.5 mg 04/08/24 18:40 04/10/24 02:38 Albuterol Neb 2.5 Mg/3 Ml INH 2.5 mg Q2HR PRN Administration Wheezing Albuterol/Ipratropium 3 ml 04/08/24 19:00 04/14/24 07:28 Ipratropium/Albuterol 3 Ml Neb INH 3 ml RTQ6H SMITH Administration Docusate Sodium 250 - 500 mg 04/14/24 12:00 Docusate Sodium 250 Mg Capsule PO DAILY SMITH Enoxaparin Sodium 40 mg 04/09/24 09:00 04/14/24 08:22 Enoxaparin 40 Mg/0.4 Ml Syringe SUBQ 40 mg DAILY SMITH Administration Gabapentin 300 mg 04/09/24 10:13 04/14/24 05:26 Gabapentin 300 Mg Capsule PO 300 mg TID SMITH Administration Guaifenesin 600 mg 04/13/24 01:00 04/14/24 08:22 Guaifenesin 600 Mg Tablet PO 600 mg BID SMITH Administration Levothyroxine Sodium 88 mcg 04/09/24 07:00 04/14/24 05:26 Levothyroxine 88 Mcg Tablet PO 88 mcg QDAC SMITH Administration Morphine Sulfate 2 mg 04/09/24 10:13 04/09/24 11:14 Morphine 2 Mg/Ml Carpuject IVP 2 mg Q4HR PRN Administration Severe Pain (Level 7-10) Multi-Ingredient Ointment 1 applic 04/09/24 17:17 04/09/24 21:43 Zinc Oxide 20% Oint 30 Gm Tube TOP 1 applic PRN PRN Administration Skin Care Nicotine 1 patch 04/09/24 10:00 04/14/24 08:23 Nicotine 14 Mg Patch TOP 1 patch DAILY SMITH Administration [id number] Ethyl Esters 1 gm 04/10/24 09:00 04/14/24 08:22 [place]-3 Acid Ethyl Esters 1 Gm Capsule PO 1 gm DAILY SMITH Administration Ondansetron HCl 4 mg 04/08/24 18:40 Ondansetron Odt 4 Mg Tablet TL Q6HR PRN Nausea / Vomiting Ondansetron HCl 4 mg 04/08/24 18:40 Ondansetron 4 Mg/2 Ml Vial IVP Q6HR PRN Nausea / Vomiting Oxycodone HCl 5 mg 04/08/24 18:40 04/09/24 08:49 Oxycodone 5 Mg Tablet PO 5 mg Q4HR PRN Administration Pain 5 to 7 Polyethylene Glycol 17 gm 04/12/24 12:00 04/14/24 08:22 Polyethylene Glycol 3350 17 Gm Packet PO 17 gm DAILY SMITH Administration Multivit/Folic Acid/Iron 1 tab 04/10/24 08:00 04/14/24 08:22 Vitamin Tablet PO 1 tab DAILYWM SMITH Administration Senna 8.6 - 17.2 mg 04/13/24 12:00 04/14/24 08:22 Senna 8.6 Mg Tablet PO 17.2 mg DAILY SMITH Administration Sodium Chloride 10 ml 04/08/24 18:40 04/10/24 06:38 Sodium Chloride Flush 0.9% 10 Ml Syringe IVP 10 ml PRN PRN Administration NEEDED PER PROVIDER ORDERS Sodium Chloride 10 ml 04/08/24 18:40 04/14/24 08:23 Sodium Chloride Flush 0.9% 10 Ml Syringe IVP 10 ml 0100,0900,1700 SMITH Administration Sodium Zirconium Cyclosilicate 10 gm 04/14/24 09:00 04/14/24 08:22 Sodium Zirconium Cyclosilicate 5 Gm Packet PO 10 gm DAILY SMITH Administration Objective Vital Signs/Intake & Output Reviewed Vital Signs: Yes Vital Signs: Vital Signs x48h Temp Pulse Pulse Pulse Resp BP Pulse Ox 04/14/24 08:20 36.4 C L 19 L 69 19 107/61 92 04/14/24 07:31 04/14/24 07:31 62 18 O2 Flow Rate 04/14/24 08:20 3.5 04/14/24 07:31 3.5 04/14/24 07:31 Intake & Output: Intake & Output 04/12/24 04/13/24 04/14/24 04/15/24 05:59 05:59 05:59 05:59 Intake Total 2840 / 2840 2420 / 2420 2680 / 2680 340 / 340 Balance 2840 / 2840 2420 / 2420 2680 / 2680 340 / 340 Weight (kg) 112 kg 113 kg 115.5 kg Objective General Appearance: positive No acute distress Eyes Bilateral: positive Normal inspection, PERRL and EOMI ENT: positive ENT inspection nml and Pharynx nml Neck: positive Nml inspection and Trachea midline Respiratory: positive Chest non-tender and No respiratory distress (On nasal cannulae.) Cardiovascular: positive Regular rate & rhythm Abdomen: positive Non-tender, No organomegaly and Nml bowel sounds Skin: positive Color nml and No rash (Lower extremities are wrapped due to venous stasis.) Extremities: positive Non-tender and No pedal edema Neurologic/Psychiatric: positive Oriented x3 and CN's nml (2-12) Lab Results 04/14/24 05:07 04/14/24 05:07 Other Labs: Lab Results x24hrs 04/14/24 04/13/24 Range/Units 05:07 11:54 WBC 6.6 (4.8-10.8) x10^3/uL RBC 4.70 (4.70-6.10) 10^6/uL Hgb 15.2 (14.0-18.0) g/dL Hct 49.0 (42.0-52.0) % MCV 104.3 H (80.0-94.0) fL MCH 32.3 H (27.0-31.0) pg MCHC 31.0 L (32.0-36.0) g/dL RDW 17.0 H (12.0-15.0) % Plt Count 131 (130-450) 10^3/uL MPV 9.0 (7.4-11.4) fL Sodium 134 L 137 (135-145) mmol/L Potassium 4.9 H 4.6 H (3.5-4.5) mmol/L Chloride 87 L 85 L (101-111) mmol/L Carbon Dioxide > 45 H* > 45 H* (21-32) mmol/L Anion Gap TNP TNP BUN 33 H 34 H (6-20) mg/dL Creatinine 1.0 1.0 (0.6-1.3) mg/dL Estimated GFR (MDRD) 76 L 76 L (>89) Glucose 92 91 (74-104) mg/dL Calcium 9.7 10.3 (8.5-10.3) mg/dL Assessment/Plan Problem List (1) Respiratory failure: Impression: Acute on chronic hypoxic respiratory failure Patient was 77% on room air on admission. He is a supplemental oxygen at home. Currently patient is on 2 L nasal cannulae. This will be required for home use. Completed 3 doses of IV Solu-Medrol. Completed prednisone 40 mg for 5 days. No cough, no sputum production. Patient completed a course of azithromycin. Continue DuoNebs every 4 hours as needed. Chest x-ray notes cardiomegaly, some infiltrates. DC IV Lasix. Continue strict ins and outs, low-salt diet, fluid restriction. Echo done on 04/09/2024 indicates EF of 65%. Right ventricular enlargement. Will continue daily weights as well. Qualifiers: Chronicity: acute Respiratory failure complication: hypoxia Qualified Code(s): J96.01 - Acute respiratory failure with hypoxia (2) Metabolic alkalosis: Impression: Initially attributed to contraction alkalosis in setting of overdiuresis. Bicarb is worsening, this most likely related to hyperkalemia versus vice versa. Bicarb continues to increase. Start patient on Diamox And lokelma (3) Hyperkalemia: Impression: This close likely secondary to the elevated bicarb Versus vice versa. Start patient on lokelma. Given patient's heart failure it is essential to keep potassium within normal levels. (4) (HFpEF) heart failure with preserved ejection fraction: Impression: IV Lasix 20 mg twice a day switched to oral Lasix, has been off for 2 days now. Will hold off on further diuresis at this time. Continue daily weights, sodium restriction, fluid restriction. [facility] for tomorrow Qualifiers: Heart failure chronicity: acute on chronic Qualified Code(s): I50.33 - Acute on chronic diastolic (congestive) heart failure (5) COPD (chronic obstructive pulmonary disease): Impression: Patient recently was started on inhalers in the outpatient setting. Needs PFTs, sleep study done in outpatient setting. Continues to smoke tobacco daily. Nicotine patch ordered. Continue to wean oxygen as tolerated. Continue DuoNebs every 6 hours. Qualifiers: COPD type: emphysema Emphysema type: unspecified Qualified Code(s): J 43.9 - Emphysema, unspecified (6) Venous stasis dermatitis: Impression: Low history of extensive venous stasis dermatitis. Patient is not followed by physician. Patient complains Of bilateral lower extremity pain. Inspection is negative for bleeding or purulence. Patient completed a course of ABX for cellulitis. Patient now on gabapentin for burning pain and numbness. As needed morphine P.o. Tylenol, oxycodone. (7) Macrocytosis without anemia: Impression: B12, TSH folate within normal limits. Patient has a history of alcohol abuse in the past. (8) Pituitary tumor: Impression: Enlarged thyroid also found on evaluation. Has declined surgical intervention, and has not seen endocrinology for evaluation. Continue his home Synthroid 88 mcg a day (9) Hypothyroid: Impression: Continue Synthroid at home dosage. Qualifiers: Hypothyroidism type: unspecified Qualified Code(s): E03.9 - Hypothyroidism, unspecified
[2024-04-14] MEDS: DOCUSATE SODIUM 250 MG CAPSULE PO SCH (12:18)
[2024-04-15 01:18] VITALS: O2SAT 91
[2024-04-15 06:10] LABS: BASOPHILS # (AUTO) 0.1 10^3/uL (0.0-0.1); BASOPHILS % (AUTO) 0.8 %; EOSINOPHILS # (AUTO) 0.1 10^3/uL (0.0-0.7); EOSINOPHILS % (AUTO) 1.9 %; HCT - HEMATOCRIT 49.5 % (42.0-52.0); HGB - HEMOGLOBIN 15.2 g/dL (14.0-18.0); LYMPHOCYTES # (AUTO) 1.6 10^3/uL (1.5-3.5); MEAN CORPUSCULAR HEMOGLOBIN 31.5 pg (27.0-31.0); MEAN CORPUSCULAR HGB CONC 30.7 g/dL (32.0-36.0); MEAN CORPUSCULAR VOLUME 102.7 fL (80.0-94.0); MEAN PLATELET VOLUME 9.2 fL (7.4-11.4); MONOCYTES # (AUTO) 0.8 10^3/uL (0.0-1.0); MONOCYTES % (AUTO) 11.2 %; NEUTROPHILS # (AUTO) 4.7 10^3/uL (1.5-6.6); NEUTROPHILS % (AUTO) 63.6 %; PLT - PLATELET COUNT 155 10^3/uL (130-450); RED BLOOD COUNT 4.82 10^6/uL (4.70-6.10); RED CELL DISTRIBUTION WIDTH 17.1 % (12.0-15.0); WHITE BLOOD COUNT 7.4 x10^3/uL (4.8-10.8)
[2024-04-15 06:35] LABS: CALCIUM 9.5 mg/dL (8.5-10.3); CREATININE 0.9 mg/dL (0.6-1.3); POTASSIUM 4.2 mmol/L (3.5-4.5)
--- NOTE | 2024-04-15 10:58 | Discharge Summary ---
Discharge Summary ALLERGIES Allergies Allergy/AdvReac Type Severity Reaction Status Date / Time No Known Drug Allergies Allergy Verified 04/08/24 15:02 MEDICATIONS Ambulatory Orders Medication Instructions Recorded Confirmed albuterol sulfate 90 mcg/actuation 90 mcg IH Q4H PRN Shortness of 09/05/23 04/08/24 breath activated powder inhaler breath, wheezing #1 ea (ProAir RespiClick) folic acid 1 mg tablet 1 mg PO DAILY #30 tabs 09/05/23 04/08/24 levothyroxine 88 mcg tablet 88 mcg PO QDAC #30 tabs 09/05/23 04/08/24 furosemide 20 mg tablet 20 mg PO DAILY #30 tabs 04/11/24 gabapentin 300 mg capsule 300 mg PO TID #90 caps 04/11/24 prednisone 20 mg tablet 40 mg (2 x 20 mg) PO DAILYWM #1 tab 04/11/24 sulfamethoxazole 800 2 tab PO BID 4 days #16 tabs 04/11/24 mg-trimethoprim 160 mg tablet LABS 04/15/24 05:31 04/15/24 05:31 Discharge Plan Discharge Patient Disposition: 01 Home, Self Care Condition: Stable Medically Cleared Date:: 04/15/24 Prescriptions: New prednisone 20 mg Tablet 40 mg PO DAILYWM Qty: 1 0RF gabapentin 300 mg Capsule 300 mg PO TID Qty: 90 0RF furosemide 20 mg Tablet 20 mg PO DAILY Qty: 30 0RF sulfamethoxazole-trimethoprim 800-160 mg Tablet 2 tab PO BID 4 Days Qty: 16 0RF Continued levothyroxine 88 MCG tablet 88 mcg PO QDAC Qty: 30 0RF folic acid 1 MG tablet 1 mg PO DAILY Qty: 30 0RF ProAir RespiClick 90 MCG aerosol powdr breath activated 90 mcg IH Q4H PRN (Reason: Shortness of breath, wheezing) Qty: 1 0RF Discontinued furosemide 40 MG tablet 40 mg PO DAILY Qty: 30 0RF potassium chloride 10 MEQ tablet,ER particles/crystals 10 meq PO DAILY Qty: 30 0RF Activity Restrictions: Activity as Tolerated Diet: Cardiac Health Concerns: You came in initially because you had some pain in your legs, and you were having some difficulty breathing. Your oxygen levels were found to be low when you first got here. For your pain in your lower legs, we started you on a nerve pain medication called gabapentin. I have sent the prescription to your pharmacy. Please make a follow-up appointment with your primary care physician, let them know this was started. You will also require a few more days of your antibiotic, Bactrim for a possible superimposed skin infection. I highly advise that you continue to follow-up with the wound care doctor who can regularly assess your legs and your wounds. For your shortness of breath, we started you on a water pill through your IV, and I have transitioned you back to the oral pill version that you take at home. I have started you on a lower dose, 20 mg, compared to the dose of 40 mg that you were previously taken. I also recommend that you follow-up with a health and safety director to assess your thyroid enlargement as well as your pituitary tumor. We are glad you are feeling better, I hope you catch the game tonight! Thank you for allowing us to take care of you. Care Plan Goals: 1. Take medications as prescribed, including your 1 day of prednisone, your additional 4 days of your Bactrim, your antibiotic, as well as your new nerve pain medication, the gabapentin. 2. Follow-up with the wound care doctor. 3. Follow-up with a health and safety director. 4. Follow-up with a primary care physician to plan for a sleep study 5. Continue to work on your smoking cessation. Print Language: Tamazight Patient Instructions: Chronic Lung Disease Prevent Infec, Smoke Free Benefits Stand Alone Forms: PCP List
--- NOTE | 2024-04-15 11:07 | Discharge Summary ---
Discharge Summary Admit Date: 04/08/24 Discharge Date: 04/11/24 Discharging Provider: Dr. Bárbara Arias Code Status: Attempt Resuscitation Discharge Facility Name: Home DIAGNOSES Admission Diagnoses: Respiratory failure Heart failure with preserved ejection fraction COPD Venous stasis dermatitis Macrocytosis without anemia Pituitary tumor Hypothyroidism Full CODE STATUS Discharge Diagnoses with Status of Each Condition: Acute hypoxic respiratory failureresolved. Patient was 77% on room air on admission. Does not use supplemental oxygen at home. Oxygen weaned down to room air. With ambulation, only went as low as 88% on room air. Completed IV Solu-Medrol, and 3 days of oral prednisone. Will send home 1 more day of oral prednisone on discharge. Was also being treated for a possible CHF exacerbation; will continue home oral Lasix 20 mg daily at this time. Repeat echo showed no acute changes. Heart failure with preserved ejection fractionstable. Continue home Lasix daily. Continue fluid restriction and salt restriction at home. COPDadvised heavily to quit smoking. Patient does appear motivated. Will send home with nicotine patches per her request. Continue inhalers that he already has at home. Continue 1 more day of oral prednisone. Venous stasis dermatitiscomplete 7-day course of Bactrim. Will require 4 more days upon discharge, will send to pharmacy. Advised to follow-up with wound care in the outpatient setting. Macrocytosis without anemiahas a former history of alcohol use, likely attributed to this. B12, folate, TSH were all within normal limits. Pituitary tumor, and large thyroidhas declined surgical intervention in the past, advised to follow-up with endocrinology. Hypothyroidismcontinue home Synthroid 88 mcg a day. HPI History of Present Illness: Per Dr. Lombardo: This is a 63-year-old white male who has a known history with preserved ejection fraction and an admission in August 2023, chronic tobacco abuse resulting in COPD, morbid obesity. He presented to the emergency room in August with the same problems he has today. He had stopped taking his Lasix for a month and it become significantly edematous. His skin was also getting red and hot to touch. And it was extending into his abdomen. He was felt to have significant stasis dermatitis of his lower extremities with an KAT that was normal recently. Without admission TSH was elevated at 13 and he was started on levothyroxine. He was instructed to go get an outpatient sleep study, a wound care referral, and pulmonary function studies. He did get wound care referral with our clinic. But he did not get an outpatient sleep study or a pulmonary function study. Echocardiogram had left ventricular wall thickness that was normal with an ejection fraction of 65 to 70%. The right ventricle was normal in size and function. RVSP at rest was 48 mmHg with mild tricuspid regurg. The ascending aorta was mildly dilated at 4.2 cm. He had a severe increase in left atrial volume index and moderate right atrial enlargement. He was seen in follow-up after the August. September visit. At that time his edema had improved. He gone to the wound clinic and extensive debridement and cleaning was done and his legs were looking better, he was feeling better. Since that time he has not followed up with our local primary care provider. When I ask him who he has been seeing he is vague. He cannot quite remember. He last called the clinic January 29 for swelling of the elbow. He was complaining of it being the size of water balloon and had been there for several months and not getting better. He was referred to the walk-in clinic. But I am not seeing any walk-in clinic visit Weight in the office in September was 275 lb . The lowest he has been is 265 pounds in January 2023. Today's weight, according to the ER chart, is 259.3 pounds. He tells me that he is compliant with his medications and diet. He is eating a low-salt diet. He takes his pills what he supposed to. He first left the hospital he actually felt good. And from September until about December or January he felt stable. And in spite of that the leg edema has been gradually creeping back on. His legs are increasingly painful. He is annoyed and tells me that this is the whole reason he is here. That this whole "congestive heart failure with edema is crap". He could care less about me diuresing him and he wants me to give him pain medicines. And he interrupts me by telling me that "and that oxycodone does not work". Over the last 2 months his bilateral lower extremity keeps on getting worse. Now into his belly. And he feels like he has been more short of breath over the last few days. Denies fever, chills, change in medication. No one else is sick around him. He has orthopnea. He has limited mobility because of the edema and pain in his legs. He says that he is cut back on his smoking and he only smokes half a pack a day. In the emergency room temperature was 36.1. Heart rate 64. Respirations 21. 92% saturated on 3 L. When he is off oxygen and walking he desaturates to 77% on room air. Blood pressure is 127/74. He is able to get up on the gurney without severe dyspnea. He is able to speak in a normal tone of voice. But now he is sitting upright on the gurney, leaning forward on the bedside table and a cane. Complaining bitterly of pain.The ER doctor found to have slightly labored respiration, and diminished breath sounds at the bases but no rhonchi or crackles. BUN is 21, creatinine is 0.9. His carbon dioxide is 36. When he was here in August he was 40. Chloride is 99. Potassium normal at 4.2. BNP is 246. He seems to be in that range consistently since August. In August he was 294. CBC has normal white cell count. Normal hemoglobin. Hematocrit slightly elevated at 52.3. MCV is 104. Platelets 246. His chest x-ray has mild CHF exacerbation versus sequela of aspiration. CONSULTS | PROCEDURES Procedures: Chest x-ray, ECHO HOSPITAL COURSE Hospital Course: Patient is a patient is a 63-year-old male with a history of COPD not on home oxygen, heart failure with preserved ejection fraction who presented with lower extremity swelling, pain, redness, as well as shortness of breath. He was found to be 77% on room air on admission. His lower extremities were swollen, and wrapped in a compressive dressing. When unwrapped, erythema was noted as well as excessive tenderness to touch. He also had some drainage, mostly serosanguineous, with no purulence noted. He was started on Bactrim for possible superimposed cellulitis. He was also diuresed extensively with IV Lasix 20 mg twice daily. This was transitioned to oral Lasix 20 mg daily, which is his home dose. His echo was repeated with no changes noted. When admitted, he also had some wheezing noted on exam. He was started on IV Solu-Medrol, and this was transitioned to prednisone. Will complete a 5-day course of steroids for this. Today, with ambulation, the lowest oxygen saturation he had was 88%. He was completely weaned off the oxygen. Plan is to discharge him home with 1 more day of oral prednisone, to complete a 7-day course for Bactrim. He was advised extensively to follow-up with the wound care doctor, his primary care physician, as well as an pre wave assembler for his incidental findings of a pituitary tumor as well as an enlarged thyroid gland. He did not want any physical therapy or occupational therapy, he has had experience with them in the past, and does not want them at this time. Overall, patient's condition is improved, he was weaned off the oxygen, he was deemed suitable for discharge home. ALLERGIES Allergies Allergy/AdvReac Type Severity Reaction Status Date / Time No Known Drug Allergies Allergy Verified 04/08/24 15:02 MEDICATIONS Ambulatory Orders Medication Instructions Recorded Confirmed albuterol sulfate 90 mcg/actuation 90 mcg IH Q4H PRN Shortness of 09/05/23 04/08/24 breath activated powder inhaler breath, wheezing #1 ea (ProAir RespiClick) folic acid 1 mg tablet 1 mg PO DAILY #30 tabs 09/05/23 04/08/24 levothyroxine 88 mcg tablet 88 mcg PO QDAC #30 tabs 09/05/23 04/08/24 furosemide 20 mg tablet 20 mg PO DAILY #30 tabs 04/11/24 gabapentin 300 mg capsule 300 mg PO TID #90 caps 04/11/24 prednisone 20 mg tablet 40 mg (2 x 20 mg) PO DAILYWM #1 tab 04/11/24 sulfamethoxazole 800 2 tab PO BID 4 days #16 tabs 04/11/24 mg-trimethoprim 160 mg tablet PHYSICAL EXAM AT DISCHARGE General Appearance: positive No acute distress and Alert; negative Anxious Eyes Bilateral: positive Normal inspection, PERRL and EOMI ENT: positive ENT inspection nml, Pharynx nml and No signs of dehydration Neck: positive Nml inspection, Thyroid nml and No JVD Respiratory: positive Chest non-tender, No respiratory distress and Breath sounds nml; negative Wheezes, Rales or Rhonchi Cardiovascular: positive Regular rate & rhythm, No murmur and No gallop; negative Irregularly irregular, Extrasystoles or Tachycardia Peripheral Pulses: positive 2+ Abdomen: positive Non-tender, No organomegaly, Nml bowel sounds and No distention; negative Tenderness, Guarding, Hepatomegaly or Splenomegaly Back: positive Nml inspection; negative CVA tenderness (R) or CVA tenderness (L) Skin: positive Color nml, Warm, Dry, Cyanosis and Skin rash (Bilateral lower extremity stasis changes with hyperpigmentation, erythema, some open wounds with serosanguineous drainage, no purulence noted) Extremities: positive Non-tender, Full ROM and Pedal edema (trace edema noted) Neurologic/Psychiatric: positive Oriented x3, Motor nml and Mood/affect nml LABS 04/15/24 05:31 04/15/24 05:31 DIAGNOSTIC IMAGING Diagnostic Imaging Results: Final report reviewed QUALITY (Female Hip Fx Only) Was patient sent home on osteoporosis medication?: No FOLLOW UP Follow Up: Advise close follow-up with wound care physician, primary care physician, as well as pre wave assembler. Patient demonstrated understanding. TIME SPENT Time Spent in Discharge (Minutes): 35 Discharge Plan Discharge Patient Disposition: Home, Self Care Condition: Stable Medically Cleared Date:: 04/15/24 Prescriptions: New prednisone 20 mg Tablet 40 mg PO DAILYWM Qty: 1 0RF gabapentin 300 mg Capsule 300 mg PO TID Qty: 90 0RF furosemide 20 mg Tablet 20 mg PO DAILY Qty: 30 0RF sulfamethoxazole-trimethoprim 800-160 mg Tablet 2 tab PO BID 4 Days Qty: 16 0RF Continued levothyroxine 88 MCG tablet 88 mcg PO QDAC Qty: 30 0RF folic acid 1 MG tablet 1 mg PO DAILY Qty: 30 0RF ProAir RespiClick 90 MCG aerosol powdr breath activated 90 mcg IH Q4H PRN (Reason: Shortness of breath, wheezing) Qty: 1 0RF Discontinued furosemide 40 MG tablet 40 mg PO DAILY Qty: 30 0RF potassium chloride 10 MEQ tablet,ER particles/crystals 10 meq PO DAILY Qty: 30 0RF Activity Restrictions: Activity as Tolerated Diet: Cardiac Health Concerns: You came in initially because you had some pain in your legs, and you were having some difficulty breathing. Your oxygen levels were found to be low when you first got here. For your pain in your lower legs, we started you on a nerve pain medication called gabapentin. I have sent the prescription to your pharmacy. Please make a follow-up appointment with your primary care physician, let them know this was started. You will also require a few more days of your antibiotic, Bactrim for a possible superimposed skin infection. I highly advise that you continue to follow-up with the wound care doctor who can regularly assess your legs and your wounds. For your shortness of breath, we started you on a water pill through your IV, and I have transitioned you back to the oral pill version that you take at home. I have started you on a lower dose, 20 mg, compared to the dose of 40 mg that you were previously taken. I also recommend that you follow-up with a pre wave assembler to assess your thyroid enlargement as well as your pituitary tumor. We are glad you are feeling better, I hope you catch the game tonight! Thank you for allowing us to take care of you. Care Plan Goals: 1. Take medications as prescribed, including your 1 day of prednisone, your additional 4 days of your Bactrim, your antibiotic, as well as your new nerve pain medication, the gabapentin. 2. Follow-up with the wound care doctor. 3. Follow-up with a pre wave assembler. 4. Follow-up with a primary care physician to plan for a sleep study 5. Continue to work on your smoking cessation. Print Language: Urdu Patient Instructions: Chronic Lung Disease Prevent Infec, Smoke Free Benefits Stand Alone Forms: PCP List
== END 2024-04-15 11:57 | disposition home or self-care (01) | DRG 189 ==
LOC: ED 14:47 → INTOOBSV 16:18 → MS2 16:18 → UNDODISIN 04-15 11:57
PROVIDERS: ADMIT Specialist; ATTEND Internal Medicine
DX: I11.0 Hypertensive heart disease with heart failure; I77.819 Aortic ectasia, unspecified site; Z91.148 Patient's other noncompliance with medication regimen for other reason; Z79.890 Hormone replacement therapy; L03.116 Cellulitis of left lower limb; J43.9 Emphysema, unspecified; E03.9 Hypothyroidism, unspecified; I87.2 Venous insufficiency (chronic) (peripheral); I50.33 Acute on chronic diastolic (congestive) heart failure; E66.01 Morbid (severe) obesity due to excess calories; Z79.899 Other long term (current) drug therapy; J44.9 Chronic obstructive pulmonary disease, unspecified; Z71.6 Tobacco abuse counseling; E87.5 Hyperkalemia; Z68.41 Body mass index [BMI] 40.0-44.9, adult; F17.210 Nicotine dependence, cigarettes, uncomplicated; J96.01 Acute respiratory failure with hypoxia; T50.1X6A Underdosing of loop [high-ceiling] diuretics, initial encounter; D75.89 Other specified diseases of blood and blood-forming organs; L03.115 Cellulitis of right lower limb; D49.7 Neoplasm of unspecified behavior of endocrine glands and other parts of nervous system